=== PATIENT | male | born 1945 | race Caucasian/White ===

== ENCOUNTER → 2017-12-29 14:46 | Outpatient (CLI) | payer MEDICARE, SELFPAY | PROVIDERS: Family Provider Internal Medicine; PCP Internal Medicine; Visit Provider Internal Medicine | DX: E11.621 Type 2 diabetes mellitus with foot ulcer (principal); L97.521 Non-pressure chronic ulcer of other part of left foot limited to breakdown of skin | CPT/HCPCS: 99213 ==

== ENCOUNTER 2018-04-28 13:00 | Outpatient (RCR) | payer MEDICARE, SELFPAY ==
--- NOTE | 2017-12-09 11:53 | PT.OTN ---
Current Diagnoses Acquired absence of right leg below knee (12/09/17) Transition note: On December 08, 2017 our therapy services consisting of Speech, Occupational, and Physical Therapy transitioned from the [employer] electronic documentation system to a new [employer] electronic documentation system.?? All documentation prior to December 08 can be found under [employer] saved data. From December 08 forward all medical record documentation will be in [employer] 6.1.
--- NOTE | 2017-12-09 16:21 | PT.OTN ---
Current Diagnoses Acquired absence of right leg below knee (12/09/17) Physical Therapy Treatment Note PT-OP-A Visit Information Start: 12/09/17 16:03 Freq: Status: Active Protocol: Activity Type Activity Date Activity User E-Sign Co-Sign Detail Recorded Client Recorded Date Recorded By Document 12/09/17 16:06 PINEDA [id number] 12/09/17 16:07 EA 12/09/17 16:06 Out-Patient Physical Therapy Visit Information [Visit Information] -Visit Type Treatment Note -Total Visit Minutes 42 -Visit Number 6 -Number of [employer] Visits 0 PT-OP-C Subjective Start: 12/09/17 16:03 Freq: Status: Active Protocol: Activity Type Activity Date Activity User E-Sign Co-Sign Detail Recorded Client Recorded Date Recorded By Document 12/09/17 16:07 PINEDA [id number] 12/09/17 16:09 EA 12/09/17 16:07 OP-PT Subjective [Patient Comments] -Patient Comments Patient reports he has been walking outside home w/ assistance and walking aide. Patient states no fall and been cautious all the time. Denies any skin irritation to stump site. -Patient Reported Progress Improving PT-OP-Q Treatments Start: 12/09/17 16:03 Freq: Status: Active Protocol: Activity Type Activity Date Activity User E-Sign Co-Sign Detail Recorded Client Recorded Date Recorded By Document 12/09/17 16:09 PINEDA [id number] 12/09/17 16:18 EA 12/09/17 16:09 Therapeutic Exercises [Standing Exercises] 2 -Standing Exercise Name Partial 4 box 1/4 lunges w/ no hand support -Side bilateral -Reps/Minutes 10 x 2 sets 1 -Standing Exercise Name // Bars unilateral 3 way hip F/ABD/ EXT -Side bilateral -Equipment Used // bars -Reps/Minutes 10 reps x 2 Gait Training [Gait Activity] 2 -Description 2 pnt gait -Device Used quad cane -Level of Assistance CGA -Surface level -Distance/Duration 50 ft x 2 -Treatment Focus gait improvement 1 -Device Used rolator walker -Level of Assistance SBA -Surface flat -Distance/Duration 120 ft x 2 -Treatment Focus gait pattern: increasinf WB to ampuated side Neuro Re-Education Treatment [Balance Activities] 3 -Details Foam marching -Reps/Duration 30 x 3 -Comments w/ single hand support 2 -Details Staggered stance ant/post rocking motion with arm FWD -Reps/Duration 30 x 3 1 -Details WBOS/NBOS weight shifting no HS w/ arm challenges -Equipment // bars -Reps/Duration 30 x 3 PT-OP-T Assessment and Plan Start: 12/09/17 16:03 Freq: Status: Active Protocol: Activity Type Activity Date Activity User E-Sign Co-Sign Detail Recorded Client Recorded Date Recorded By Document 12/09/17 16:19 PINEDA [id number] 12/09/17 16:20 PINEDA 12/09/17 16:19 Physical Therapy Assessment [Assessment Summary] -Assessment Tolerated treatment well w/ few rest due to fatigue. Physical Therapy Plan [Next Visit Focus/Plan] -Next Visit Plan Continue w/ current plan. Single leg strengthening exercise and provide HEP.
--- NOTE | 2017-12-16 14:07 | PT.OTN ---
Current Diagnoses Acquired absence of right leg below knee (12/16/17) Physical Therapy Treatment Note PT-OP-A Visit Information Start: 12/09/17 16:03 Freq: Status: Active Protocol: Document 12/16/17 13:57 EA (Rec: 12/16/17 14:06 EA [id number]) Out-Patient Physical Therapy Visit Information Visit Information Visit Type Treatment Note Visit Start Time 01:00 Visit Stop Time 01:45 Total Visit Minutes 45 Visit Number 7 PT-OP-C Subjective Start: 12/09/17 16:03 Freq: Status: Active Protocol: Document 12/16/17 13:57 EA (Rec: 12/16/17 14:06 EA [id number]) OP-PT Subjective Patient Comments Patient Reported Progress Improving PT-OP-Q Treatments Start: 12/09/17 16:03 Freq: Status: Active Protocol: Document 12/16/17 13:57 EA (Rec: 12/16/17 14:06 EA [id number]) Gym Equipment Shuttle Recovery Unilateral Squats Details 0-90 deg Resistance 2 cords Therapeutic Exercises Standing Exercises 3 Standing Exercise Name // bars foam marching Comments one hand support 2 Standing Exercise Name Partial 4 box 1/4 lunges w/ no hand support Side bilateral Reps/Minutes 10 x 2 sets 1 Standing Exercise Name // Bars unilateral 3 way hip F /ABD/EXT Side bilateral Equipment Used // bars Reps/Minutes 10 reps x 2 Gait Training Gait Activity 3 Description stairs 4 Device Used Bilat rails Level of Assistance CGA Distance/Duration 5 mins Comments step through 2 Description 2 pnt gait Device Used quad cane Level of Assistance CGA Surface level Distance/Duration 50 ft x 2 Treatment Focus gait improvement 1 Device Used rolator walker Level of Assistance SBA Surface flat Distance/Duration 150 ft x 2 Treatment Focus gait pattern: increasinf WB to ampuated side Neuro Re-Education Treatment Balance Activities 3 Details Foam marching Reps/Duration 30 x 3 Comments w/ single hand support 2 Details Staggered stance ant/post rocking motion with arm FWD Reps/Duration 30 x 3 1 Details WBOS/NBOS weight shifting no HS w/ arm challenges Equipment // bars Reps/Duration 30 x 3 PT-OP-T Assessment and Plan Start: 12/09/17 16:03 Freq: Status: Active Protocol: Document 12/16/17 13:57 EA (Rec: 05/09/18 14:06 EA [id number]) Physical Therapy Assessment Assessment Summary Assessment Noted improved gait with cane. patient is progresing very well. Physical Therapy Plan Next Visit Focus/Plan Next Visit Plan Cont. with current plan. Practice in/out the car with gm to amb in the parking area.
--- NOTE | 2017-12-21 17:33 | PT.OTN ---
Current Diagnoses Acquired absence of right leg below knee (12/21/17) Physical Therapy Treatment Note PT-OP-A Visit Information Start: 12/09/17 16:03 Freq: Status: Active Protocol: Document 12/21/17 16:49 EA (Rec: 12/21/17 17:32 EA [id number]) Out-Patient Physical Therapy Visit Information Visit Information Visit Start Time 03:15 Visit Stop Time 04:00 Total Visit Minutes 45 Visit Number 8 PT-OP-C Subjective Start: 12/09/17 16:03 Freq: Status: Active Protocol: Document 12/21/17 16:49 EA (Rec: 12/21/17 17:32 EA [id number]) OP-PT Subjective Patient Comments Patient Comments Patient reports that he has been walking at home with walker; denies fall. Pt also reports had to see his docotr today due to bleeding at second toes, however woulnd properly cared at this time. Patient Reported Progress Improving PT-OP-Q Treatments Start: 12/09/17 16:03 Freq: Status: Active Protocol: Document 12/21/17 16:49 EA (Rec: 12/21/17 17:32 EA [id number]) Gym Equipment Shuttle Recovery Unilateral Squats Details 0-90 deg Resistance 2 cords Therapeutic Exercises Standing Exercises 3 Standing Exercise Name // bars foam marching Comments one hand support 2 Standing Exercise Name Partial 4 box 1/4 lunges w/ no hand support Side bilateral Reps/Minutes 10 x 2 sets Gait Training Gait Activity 3 Description stairs 6 Device Used Quad cane and single rail Level of Assistance CGA Distance/Duration 5 mins Comments step through 2 Description 2 pnt gait Device Used quad cane/STC Level of Assistance CGA Surface level Distance/Duration 50 ft x 2 Treatment Focus gait improvement 1 Description Out side amb Device Used rolator walker Level of Assistance SBA Surface flat Distance/Duration 150 ft x 2 Treatment Focus gait pattern: increasinf WB to ampuated side Comments Patient requires rest due dizziness. Neuro Re-Education Treatment Balance Activities 3 Details Foam marching Reps/Duration 30 x 3 Comments w/ single hand support 1 Details WBOS/NBOS weight shifting no HS w/ arm challenges Equipment shuttle balance at blue clips Reps/Duration 30 x 3 PT-OP-T Assessment and Plan Start: 12/09/17 16:03 Freq: Status: Active Protocol: Document 12/21/17 16:49 PINEDA (Rec: 12/21/17 17:32 EA [id number]) Physical Therapy Assessment Goals Four Impairment Gait difficulty Wall Man Goal (LTG) Patient will amb w/ ben to normal gait w/ STC on even surfaces indep. LTG Duration 6 wks Three Impairment Stairs difficulty Short Term Goal (STG) Patient will ascent/descent stair reciprocally indep LTG Duration 5 wks Two Impairment Balance Wall Man Goal (LTG) Patient jg stand on involved leg x 5 secs w/out HS for gait enhancement. LTG Duration 4 wks One Impairment Decreased tolerance to ambulation w/ walker Assisted Goal (LTG) Patient will ab 300 ft with RW indep LTG Duration 6 weeks Progress Towards Goals Progress Towards Goals Slow Progress due to Activity Tolerance Assessment Summary Assessment Patient tolerated treatment well w/ minor standing tolerance issue due to dizziness. a 10-15 mmHG SBP dropped noted. Advised patient to monitor BP closely before and during home ambulation program. Physical Therapy Plan Next Visit Focus/Plan Next Visit Plan Gait w/ Cane
--- NOTE | 2017-12-29 16:14 | PT.OTN ---
Current Diagnoses Acquired absence of right leg below knee (12/29/17) Physical Therapy Treatment Note PT-OP-A Visit Information Start: 12/09/17 16:03 Freq: Status: Active Protocol: Document 12/29/17 16:06 EA (Rec: 12/29/17 16:13 EA [id number]) Out-Patient Physical Therapy Visit Information Visit Information Visit Type Treatment Note Visit Start Time 02:30 Visit Stop Time 03:15 Total Visit Minutes 45 Visit Number 9 PT-OP-C Subjective Start: 12/09/17 16:03 Freq: Status: Active Protocol: Document 12/29/17 16:06 EA (Rec: 12/29/17 16:13 EA [id number]) OP-PT Subjective Patient Comments Patient Comments Patient reports that he has been walking a lot in the past few days; reports no falls but would like to learn how get up from the floor. Patient denies any blister to stump side and opposite foot wound is healed. Patient Reported Progress Improving PT-OP-Q Treatments Start: 12/09/17 16:03 Freq: Status: Active Protocol: Document 12/29/17 16:06 EA (Rec: 12/29/17 16:13 EA [id number]) Gait Training Gait Activity 3 Description stairs 6 Device Used STC and single rail Level of Assistance CGA Distance/Duration 5 mins Comments step through 2 Description 2 pnt gait Device Used STC Level of Assistance CGA Surface level Distance/Duration 50 ft x 2 Treatment Focus gait improvement 1 Description STC ambulation x 100 ft x 3 Neuro Re-Education Treatment Balance Activities 3 Details Foam marching Reps/Duration 30 x 3 Comments w/ single hand support 2 Details Staggered stance ant/post rocking motion with arm FWD Reps/Duration 30 x 3 1 Details WBOS/NBOS weight shifting no HS w/ arm challenges Equipment shuttle balance at blue clips Reps/Duration 30 x 3 PT-OP-T Assessment and Plan Start: 12/09/17 16:03 Freq: Status: Active Protocol: Document 12/29/17 16:06 EA (Rec: 12/29/17 16:13 EA [id number]) Physical Therapy Assessment Progress Towards Goals Progress Towards Goals Progressing Toward Goals Assessment Summary Assessment Patient noted improve energy level and tolerance to activity without a complain of dizziness. Patient also noted improved gait with STC. Overall patient is progressing very well. Physical Therapy Plan Next Visit Focus/Plan Next Visit Plan LE strengthening. Please Sign and Return: I have reviewed this Plan of Care and certify that the skilled therapy services above are required to meet the patient???s needs. Physician Signature Date Printed Name and Credentials Clinical Instructor Signature Printed Name and Credentials
--- NOTE | 2017-12-30 15:36 | PT.OTN ---
Current Diagnoses Acquired absence of right leg below knee (12/30/17) Physical Therapy Treatment Note PT-OP-A Visit Information Start: 12/09/17 16:03 Freq: Status: Active Protocol: Document 12/30/17 15:23 EA (Rec: 12/30/17 15:33 EA [id number]) Out-Patient Physical Therapy Visit Information Visit Information Visit Type Treatment Note Total Visit Minutes 38 Visit Number 10 PT-OP-C Subjective Start: 12/09/17 16:03 Freq: Status: Active Protocol: Document 12/30/17 15:23 EA (Rec: 12/30/17 15:33 EA [id number]) OP-PT Subjective Patient Comments Patient Comments Patient reports that he wants to improve arm and leg strength as he feels leg/arm are still weak; reports that he has been walking at home using walker; denies blister to stump area. Patient Reported Progress Improving PT-OP-Q Treatments Start: 12/09/17 16:03 Freq: Status: Active Protocol: Document 12/30/17 15:23 EA (Rec: 12/30/17 15:33 EA [id number]) Cardio Equipment Recumbent Stepper (Sci-Fit) Duration (Minutes) 7 Resistance 3 Gym Equipment Cable Column (Body Solid) Rows Resistance x 3 plates Reps/Time x 15 reps x 2 Hip Adduction Resistance 3 plates Reps/Time x 15 reps x2 Lat Pull Down Details 3 plates Reps/Time x 15 reps x 2 Hip Abduction Resistance 2-4 plates Reps/Time x 3 sets x 15 Shuttle Recovery Unilateral Squats Details 0-90 deg Resistance 2-3 cords Therapeutic Exercises Standing Exercises 4 Standing Exercise Name railing side step squat Reps/Minutes x 2 laps PT-OP-T Assessment and Plan Start: 12/09/17 16:03 Freq: Status: Active Protocol: Document 12/30/17 15:23 EA (Rec: 12/30/17 15:33 EA [id number]) Physical Therapy Assessment Goals Four Impairment Gait difficulty Residential Goal (LTG) Patient will amb w/ ben to normal gait w/ STC on even surfaces indep. LTG Duration 6 wks Three Impairment Stairs difficulty Short Term Goal (STG) Patient will ascent/descent stair reciprocally indep LTG Duration 5 wks Two Impairment Balance Residential Goal (LTG) Patient jg stand on involved leg x 5 secs w/out HS for gait enhancement. LTG Duration 4 wks One Impairment Decreased tolerance to ambulation w/ walker Residential Goal (LTG) Patient will ab 300 ft with RW indep LTG Duration 6 weeks Progress Towards Goals Progress Towards Goals Progressing Toward Goals Assessment Summary Assessment Patient has progress from CGA to SBA with 4WW and CGA/SBA with cane during gait. No noted any dizziness or general fatigue. Overall patient is progresing well towards goals. Physical Therapy Plan Next Visit Focus/Plan Next Visit Plan Cont. with current plan. Advance as tolerated Please Sign and Return: I have reviewed this Plan of Care and certify that the skilled therapy services above are required to meet the patient???s needs. Physician Signature Date Printed Name and Credentials Clinical Instructor Signature Printed Name and Credentials
--- NOTE | 2018-01-06 16:06 | PT.OTN ---
Current Diagnoses Acquired absence of right leg below knee (01/06/18) Physical Therapy Treatment Note PT-OP-A Visit Information Start: 12/09/17 16:03 Freq: Status: Active Protocol: Document 01/06/18 15:58 EA (Rec: 01/06/18 16:03 EA [id number]) Out-Patient Physical Therapy Visit Information Visit Information Visit Type Treatment Note Total Visit Minutes 38 Visit Number 11 PT-OP-C Subjective Start: 12/09/17 16:03 Freq: Status: Active Protocol: Document 01/06/18 15:58 EA (Rec: 01/06/18 16:03 EA [id number]) OP-PT Subjective Patient Comments Patient Comments Patient reports dizzy spills still noted in the past days; denies fall however still requires help for mobility outdoor. Patient Reported Progress Improving PT-OP-Q Treatments Start: 12/09/17 16:03 Freq: Status: Active Protocol: Document 01/06/18 15:58 EA (Rec: 01/06/18 16:03 EA [id number]) Gym Equipment Shuttle Recovery Unilateral Squats Details 0-90 deg Resistance 2-3 cords Gait Training Gait Activity 3 Description stairs 6 Device Used STC and single rail Level of Assistance CGA Distance/Duration 5 mins Comments step through 2 Description FWD/BWD/SWD Device Used No AD Level of Assistance CGA Surface level Treatment Focus gait improvement Neuro Re-Education Treatment Balance Activities 3 Details Foam marching Reps/Duration 30 x 3 Comments w/ single hand support 2 Details Staggered stance ant/post rocking motion with arm FWD Reps/Duration 30 x 3 1 Details WBOS/NBOS weight shifting no HS w/ arm challenges Equipment shuttle balance at blue clips Reps/Duration 20 x2 Comments Dizziness/nausea after sets noted and forced patient to stop exercises. PT-OP-T Assessment and Plan Start: 12/09/17 16:03 Freq: Status: Active Protocol: Document 01/06/18 16:03 EA (Rec: 01/06/18 16:06 EA [id number]) Physical Therapy Assessment Assessment Summary Assessment Patient was nauseated and vomitted after balance exercises; Vitals were measured ( 130/70mmHg, 78 bpm with normal O2 sat) and normal . Patient felt good after 5 mins of rest. Recommended patient to check with physician regarding dizzy spills. Physical Therapy Plan Next Visit Focus/Plan Next Note Type Progress Note Next Visit Plan Advance as tolerated. Please Sign and Return: I have reviewed this Plan of Care and certify that the skilled therapy services above are required to meet the patient???s needs. Physician Signature Date Printed Name and Credentials Clinical Instructor Signature Printed Name and Credentials
--- NOTE | 2018-01-13 15:53 | PT.OTN ---
Current Diagnoses Acquired absence of right leg below knee (01/13/18) Physical Therapy Treatment Note PT-OP-A Visit Information Start: 12/09/17 16:03 Freq: Status: Active Protocol: Document 01/13/18 15:41 EA (Rec: 01/13/18 15:52 EA [id number]) Out-Patient Physical Therapy Visit Information Visit Information Visit Type Treatment Note Visit Number 12 PT-OP-C Subjective Start: 12/09/17 16:03 Freq: Status: Active Protocol: Document 01/13/18 15:41 EA (Rec: 01/13/18 15:52 EA [id number]) OP-PT Subjective Patient Comments Patient Comments Patient reports feeling much better today and no dizziness occurences after pacemaker adjustment few days ago. Patient reports that he has been active at home and doing ADL almost indep in all. Patient also reports that he has been walking outdoors with assistance; denies fall in the past few weeks. PT-OP-Q Treatments Start: 12/09/17 16:03 Freq: Status: Active Protocol: Document 01/13/18 15:41 EA (Rec: 01/13/18 15:52 EA [id number]) Gait Training Gait Activity 3 Description stairs 6 Device Used STC and single rail Level of Assistance Single rail Distance/Duration 10 mins Comments step through 2 Description FWD/BWD/SWD Device Used No AD Level of Assistance CGA Surface level Distance/Duration 10 mins Treatment Focus gait improvement 1 Description Level surface amb with no hand support Level of Assistance close guard assist Distance/Duration 100 ft x 3 Neuro Re-Education Treatment Balance Activities 3 Details Foam marching Reps/Duration 30 x 3 Comments w/ single hand support 2 Details Staggered stance ant/post rocking motion with arm FWD Reps/Duration 30 x 3 1 Details WBOS/NBOS weight shifting no HS w/ arm challenges Equipment shuttle balance at blue clips Reps/Duration 20 x2 PT-OP-T Assessment and Plan Start: 12/09/17 16:03 Freq: Status: Active Protocol: Document 01/13/18 15:41 EA (Rec: 01/13/18 15:52 EA [id number]) Physical Therapy Assessment Assessment Summary Assessment Patient tolerated treatment well with no signs or c/o dizziness. Patient exhibit improved dynamic mobility. Physical Therapy Plan Next Visit Focus/Plan Next Visit Plan Advance as tolerated Please Sign and Return: I have reviewed this Plan of Care and certify that the skilled therapy services above are required to meet the patient?s needs. Physician Signature Date Printed Name and Credentials Clinical Instructor Signature Printed Name and Credentials
--- NOTE | 2018-01-18 16:54 | PT.OTN ---
Current Diagnoses Acquired absence of right leg below knee (01/18/18) Physical Therapy Treatment Note PT-OP-A Visit Information Start: 12/09/17 16:03 Freq: Status: Active Protocol: Document 01/18/18 16:16 EA (Rec: 01/18/18 16:19 EA [id number]) Out-Patient Physical Therapy Visit Information Visit Information Visit Type Treatment Note Total Visit Minutes 40 Visit Number 13 PT-OP-C Subjective Start: 12/09/17 16:03 Freq: Status: Active Protocol: Document 01/18/18 16:16 EA (Rec: 01/18/18 16:19 EA [id number]) OP-PT Subjective Patient Comments Patient Comments Patient reports he has been active at home and no fall in the past few days. Patient Reported Progress Improving PT-OP-Q Treatments Start: 12/09/17 16:03 Freq: Status: Active Protocol: Document 01/18/18 16:16 EA (Rec: 01/18/18 16:19 EA [id number]) Gym Equipment Cable Column (Body Solid) Hip Adduction Resistance 3 plates Reps/Time x 15 reps x2 Hip Abduction Resistance 2-4 plates Reps/Time x 3 sets x 15 Shuttle Recovery Unilateral Squats Details 0-90 deg Resistance 2-4 cords Shuttle Recovery Platform Stable Therapeutic Exercises Standing Exercises 4 Standing Exercise Name railing side step squat Reps/Minutes x 2 laps Gait Training Gait Activity 3 Description stairs 6 Device Used STC and single rail Level of Assistance Single rail Distance/Duration 10 mins Comments step through 2 Description FWD/BWD/SWD Device Used No AD Level of Assistance CS Surface level Distance/Duration 10 mins Treatment Focus gait improvement Comments x 2 lines of diana obstacle with no AD 1 Description Level surface amb with no hand support Device Used none Level of Assistance close guard assist Distance/Duration 100 ft x 3 Neuro Re-Education Treatment Balance Activities 3 Details Foam marching Reps/Duration 30 x 3 Comments w/ single hand support 2 Details Staggered stance ant/post rocking motion with arm FWD Reps/Duration 30 x 3 1 Details WBOS/NBOS weight shifting no HS w/ arm challenges Equipment shuttle balance at blue clips Reps/Duration 20 x2 PT-OP-T Assessment and Plan Start: 12/09/17 16:03 Freq: Status: Active Protocol: Document 01/18/18 16:49 EA (Rec: 01/18/18 16:51 EA [id number]) Physical Therapy Assessment Assessment Summary Assessment Improved gait/mobility noted with no signs of instability. Still difficulty with diana obstacle. Physical Therapy Plan Next Visit Focus/Plan Next Note Type Treatment Note Next Visit Plan Progress as tolerated. SLS balance. Please Sign and Return: I have reviewed this Plan of Care and certify that the skilled therapy services above are required to meet the patient?s needs. Physician Signature Date Printed Name and Credentials Clinical Instructor Signature Printed Name and Credentials
--- NOTE | 2018-01-20 15:42 | PT.OTN ---
Current Diagnoses Acquired absence of right leg below knee (01/20/18) Physical Therapy Treatment Note PT-OP-A Visit Information Start: 12/09/17 16:03 Freq: Status: Active Protocol: Document 01/20/18 15:18 EA (Rec: 01/20/18 15:41 EA [id number]) Out-Patient Physical Therapy Visit Information Visit Information Visit Type Treatment Note Total Visit Minutes 40 PT-OP-C Subjective Start: 12/09/17 16:03 Freq: Status: Active Protocol: Document 01/20/18 15:18 EA (Rec: 01/20/18 15:41 EA [id number]) OP-PT Subjective Patient Comments Patient Comments Patient reports stump irritation has been fixed after seeing the prothetist. Pt states that he has been walking frequently at home with STC and no fall in the past weeks. He mentioned that since the dizziness cured few weeks ago, he has been feeling much better. Patient Questionnaires Lower Extremity Functional Scale LEFS Score 61 LEFS Impairment 20 to 39% Impaired (Score 48- 62) PT-OP-Q Treatments Start: 12/09/17 16:03 Freq: Status: Active Protocol: Document 01/20/18 15:18 EA (Rec: 01/20/18 15:41 EA [id number]) Gait Training Gait Activity 3 Description stairs 6 Device Used STC and single rail Level of Assistance Single rail Distance/Duration 5 Comments step through 2 Description FWD/BWD/SWD Device Used No AD Level of Assistance CS Surface level Distance/Duration 5 mins Treatment Focus gait improvement Comments cone floor placing and picking up 1 Description outrside ambulation with STC: elvated, grass and curbs. Level of Assistance close guard with belt. Distance/Duration 15 mins Comments outside PT campus: requires rest on the benches Neuro Re-Education Treatment Balance Activities 2 Details Staggered stance ant/post rocking motion with arm FWD Reps/Duration 30 x 3 1 Details WBOS/NBOS weight shifting no HS w/ arm challenges Equipment shuttle balance at blue clips Reps/Duration 20 x2 Comments Arm challenge and balloon toss . PT-OP-T Assessment and Plan Start: 12/09/17 16:03 Freq: Status: Active Protocol: Document 01/20/18 15:18 EA (Rec: 01/20/18 15:41 EA [id number]) Physical Therapy Assessment Assessment Summary Assessment Patient exhibits improved tolerance to functional mobility. TUG test have <10 secs, Stand and reach > 10 on each side. Patient recommended to increase home mobility daily with 2-5 mins increments to reach 25 mins. Physical Therapy Plan Next Visit Focus/Plan Next Visit Plan Cont with current plan. Provide HEP as appropriate. Please Sign and Return: I have reviewed this Plan of Care and certify that the skilled therapy services above are required to meet the patient?s needs. Physician Signature Date Printed Name and Credentials Clinical Instructor Signature Printed Name and Credentials
--- NOTE | 2018-04-01 13:31 | PT.OTRE ---
Current Diagnoses Acquired absence of right leg below knee (03/31/18) Provider Visit Care Team Role Provider Type Rolo Cosme MD Family Provider Physician Primary Care Provider Specialty: Wound Care Address: [address] [place] [address], [id number] Email: [email or web address] Attending Provider Non-Staff Specialty: Medical Address: [address] [place] [address], [id number] Email: Physical Therapy Re-Evaluation PT-OP-A Visit Information Start: 12/09/17 16:03 Freq: Status: Active Protocol: Document 03/31/18 16:54 EA (Rec: 03/31/18 16:57 EA [id number]) Out-Patient Physical Therapy Visit Information Visit Information Visit Type Re-Evaluation Visit Note Re-evaluation performed today. Visit Start Time 13:00 Visit Stop Time 13:45 Total Visit Minutes 45 Visit Number 15 PT-OP-C Subjective Start: 12/09/17 16:03 Freq: Status: Active Protocol: Document 03/31/18 17:20 EA (Rec: 03/31/18 17:22 EA [id number]) OP-PT Subjective Patient Comments Patient Comments Patient reports able to walk at home indep without AD; states requires AD when ambulating outdoors. Patient states he wants to be able to walk 5 blocks without AD and wants to improve his both LE's strength Patient Reported Progress Improving Patient Questionnaires Lower Extremity Functional Scale LEFS Score 47 LEFS Impairment 40 to 59% Impaired (Score 32- 47) PT-OP-D Balance Start: 12/09/17 16:03 Freq: Status: Active Protocol: Document 03/31/18 17:23 EA (Rec: 03/31/18 17:31 EA [id number]) Balance Tests Functional Reach Functional Reach Impairment Rating 0% Impaired (Score 10) Romberg Romberg Moderate difficulty Single Limb Standing Single Limb- Right 2 secs Single Limb- Left 2 secs Semi-Tandem Standing Semi-Tandem Standing Balance with min difficulty Tinetti Balance Assessment Sitting Balance Sitting Balance Steady, safe Sitting Down Sitting Down Uses arms or unsteady Gait and Step Initiation of Gait No hesitancy Right Foot Step Length Does pass stance foot Right Foot Step Height Completely clears floor Left Foot Step Length Does pass stance foot Left Foot Step Height Completely clears floor Step Description Step Symmetry Step length not equal Gait Description Path Description Straight Trunk Description No sway but posturing Walking Stance Heels together Scoring and Interpretation Tinetti Composite Score (points) 11 Interpretation of Scores Low risk for falls (>24) PT-OP-E Functional Tests Start: 12/09/17 16:03 Freq: Status: Active Protocol: Document 03/31/18 17:23 EA (Rec: 03/31/18 17:31 EA [id number]) Functional Tests 2 Minute Walk Test Distance 332 ft Device Used none Comments right lateral hip burn/cramp pain Dynamic Gait Index (DGI) DGI Impairment Rating 40 to <60% Impaired (Score 10- 14) Timed Up and Go (TUG) Score 15 TUG Impairment Rating 40 to <60% Impaired (Score 14- 15) PT-OP-G Mobility & Gait Start: 12/09/17 16:03 Freq: Status: Active Protocol: Document 03/31/18 17:23 EA (Rec: 03/31/18 17:31 EA [id number]) OP Mobility Evaluation Bed Mobility Rolling indep Supine to and from Sit indep Functional Movements Lifting and Carrying requires assistance Squats minimal difficulty Running Assessment unable OP Gait Assessment Gait Gait Assistance Required: Independent Distance (Feet) (feet) 332 Able to Maintain Weight Bearing Status Yes During Gait Assistive Devices Assistive Device Straight Cane Gait Deviations General Gait Pattern Decreased Feet Clearance Lateral Trunk Lean Comments Gait Comments Patient is BKA with prosthetic leg Stair Climbing Evaluation Evaluation Level of Assist On Stairs Independent Devices Stair Climbing Assistive Devices None Technique/Endurance Stair Climbing Direction Ascend and Descend Stair Climbing Technique Step Over Step Number of Steps Climbed 9 Comments Stair Climbing Comments Minimal difficulty during descent; uses both rails PT-OP-Q Treatments Start: 12/09/17 16:03 Freq: Status: Active Protocol: Document 03/31/18 17:31 EA (Rec: 03/31/18 17:36 EA [id number]) Gym Equipment Cable Column (Body Solid) Hip Adduction Resistance 3 plates Reps/Time x 15 reps x2 Hip Abduction Resistance 2-4 plates Reps/Time x 3 sets x 15 Shuttle Recovery Unilateral Squats Details 0-90 deg Resistance 2-4 cords Shuttle Recovery Platform Stable Therapeutic Exercises Standing Exercises 4 Standing Exercise Name railing side step squat Reps/Minutes x 2 laps 3 Standing Exercise Name // bars foam marching Comments one hand support 2 Standing Exercise Name Partial 4 box 1/4 lunges w/ no hand support Side bilateral Reps/Minutes 10 x 2 sets Gait Training Gait Activity 3 Description stairs 6 Device Used single rail up; double rails down Level of Assistance indep Comments step through 1 Description flat ground Device Used none Level of Assistance close guard with belt. Distance/Duration 15 mins Neuro Re-Education Treatment Balance Activities 3 Details Foam marching Reps/Duration 30 x 3 Comments w/ single hand support 2 Details Staggered stance ant/post rocking motion with arm FWD Reps/Duration 30 x 3 1 Details WBOS/NBOS weight shifting no HS w/ arm challenges Equipment shuttle balance at blue clips Reps/Duration 20 x2 Comments Arm challenge and balloon toss . PT-OP-T Assessment and Plan Start: 12/09/17 16:03 Freq: Status: Active Protocol: Document 03/31/18 17:31 EA (Rec: 03/31/18 17:36 EA [id number]) Physical Therapy Assessment Rehab Potential Rehabilitation Potential Good Impairments Impairments Balance Functional Activities Functional Mobility Gait Pain Strength Goals Six Impairment SLS to affectd leg: < 2 seconds Rail Transportation Operator Goal (LTG) Patient will SLS to amputated leg > 5 seconds to enhace Five Impairment decreased amb tolerance without AD Chcf Goal (LTG) Patient will amb > 500 ft without AD without hip pain LTG Duration 6 wks Four Impairment Difficulty amb on even and even surface without AD Rail Transportation Operator Goal (LTG) Patient will amb w/ near to normal gait without AD on even /uneven surfaces indep. LTG Duration 6 wks Three Impairment Stairs difficulty Short Term Goal (STG) Patient will ascent/descent stair reciprocally indep LTG Duration Goal reached Two Impairment Balance Rail Transportation Operator Goal (LTG) Patient jg stand on involved leg x 5 secs w/out HS for gait enhancement. LTG Duration 4 wks One Impairment Decreased tolerance to ambulation w/ walker Rail Transportation Operator Goal (LTG) Patient will ab 300 ft with RW indep LTG Duration goal reached Progress Towards Goals Progress Towards Goals Progressing Toward Goals Progress Comments Patient is progressing more than expected. Assessment Summary Assessment Patient continue to demonstrate progress to functional transfer and mobility. Patient is currently amb with no AD at home but requires AD for outdoors. Right hip pain due to gait deviation limits patient to increase ambulation tolerance. In addition, patient dizziness seems to hinder progress, otherwise patient will cont. to progress. Physical Therapy Plan Frequency and Duration Frequency of Treatment 2x/Week Duration of Treatment 6 wks Plan of Care Start Date 03/31/18 Plan of Care End Date 05/12/18 Therapeutic Interventions Therapeutic Interventions Balance Training Gait Training Home Exercise Program Manual Therapy Neuromuscular Re-education Orthotic/Prosthetic Management Patient/Caregiver Education Self-Care/Home Management Therapeutic Exercises Modalities Cold Pack/Ice Massage Next Visit Focus/Plan Next Note Type Treatment Note Next Visit Plan balance, gait, and strengthening exercises
--- NOTE | 2018-04-01 13:32 | PT.OPPOC ---
Current Diagnoses Acquired absence of right leg below knee (03/31/18) Provider Visit Care Team Role Provider Type Rolo Cosme MD Family Provider Physician Primary Care Provider Specialty: Wound Care Address: [address] [place] [address], [address] Email: [email or web address] Attending Provider Non-Staff Specialty: Medical Address: [address] [place] [address], [phone] Email: Plan Of Care PT-OP-T Assessment and Plan Start: 12/09/17 16:03 Freq: Status: Active Protocol: Document 03/31/18 17:31 EA (Rec: 03/31/18 17:36 EA [id number]) Physical Therapy Assessment Rehab Potential Rehabilitation Potential Good Impairments Impairments Balance Functional Activities Functional Mobility Gait Pain Strength Goals Six Impairment SLS to affectd leg: < 2 seconds Mcfp Goal (LTG) Patient will SLS to amputated leg > 5 seconds to enhace Five Impairment decreased amb tolerance without AD Mcfp Goal (LTG) Patient will amb > 500 ft without AD without hip pain LTG Duration 6 wks Four Impairment Difficulty amb on even and even surface without AD Sprinkler Worker Goal (LTG) Patient will amb w/ near to normal gait without AD on even /uneven surfaces indep. LTG Duration 6 wks Three Impairment Stairs difficulty Short Term Goal (STG) Patient will ascent/descent stair reciprocally indep LTG Duration Goal reached Two Impairment Balance Sprinkler Worker Goal (LTG) Patient jg stand on involved leg x 5 secs w/out HS for gait enhancement. LTG Duration 4 wks One Impairment Decreased tolerance to ambulation w/ walker Mcfp Goal (LTG) Patient will ab 300 ft with RW indep LTG Duration goal reached Progress Towards Goals Progress Towards Goals Progressing Toward Goals Progress Comments Patient is progressing more than expected. Assessment Summary Assessment Patient continue to demonstrate progress to functional transfer and mobility. Patient is currently amb with no AD at home but requires AD for outdoors. Right hip pain due to gait deviation limits patient to increase ambulation tolerance. In addition, patient dizziness seems to hinder progress, otherwise patient will cont. to progress. Physical Therapy Plan Frequency and Duration Frequency of Treatment 2x/Week Duration of Treatment 6 wks Plan of Care Start Date 03/31/18 Plan of Care End Date 05/12/18 Therapeutic Interventions Therapeutic Interventions Balance Training Gait Training Home Exercise Program Manual Therapy Neuromuscular Re-education Orthotic/Prosthetic Management Patient/Caregiver Education Self-Care/Home Management Therapeutic Exercises Modalities Cold Pack/Ice Massage Next Visit Focus/Plan Next Note Type Treatment Note Next Visit Plan balance, gait, and strengthening exercises Plan of Care Dates Plan of Care Start Date 03/31/18 Plan of Care End Date 05/12/18 Please Sign and Return: I have reviewed this Plan of Care and certify that the skilled therapy services above are required to meet the patient?s needs. Physician Signature Date Printed Name and Credentials Clinical Instructor Signature Printed Name and Credentials
--- NOTE | 2018-04-07 15:48 | PT.OTN ---
Current Diagnoses Acquired absence of right leg below knee (04/07/18) Physical Therapy Treatment Note PT-OP-A Visit Information Start: 12/09/17 16:03 Freq: Status: Active Protocol: Document 04/07/18 14:33 EA (Rec: 04/07/18 14:38 EA [id number]) Out-Patient Physical Therapy Visit Information Visit Information Visit Type Treatment Note Visit Start Time 13:00 Visit Stop Time 13:40 Total Visit Minutes 40 Visit Number 16 PT-OP-C Subjective Start: 12/09/17 16:03 Freq: Status: Active Protocol: Document 04/07/18 14:33 EA (Rec: 04/07/18 14:38 EA [id number]) OP-PT Subjective Patient Comments Patient Comments Pt reports he feels much better today after being out of deuritic medication. PT-OP-D Balance Start: 12/09/17 16:03 Freq: Status: Active Protocol: Document 03/31/18 17:23 EA (Rec: 03/31/18 17:31 EA [id number]) Balance Tests Functional Reach Functional Reach Impairment Rating 0% Impaired (Score 10) Romberg Romberg Moderate difficulty Single Limb Standing Single Limb- Right 2 secs Single Limb- Left 2 secs Semi-Tandem Standing Semi-Tandem Standing Balance with min difficulty Tinetti Balance Assessment Sitting Balance Sitting Balance Steady, safe Sitting Down Sitting Down Uses arms or unsteady Gait and Step Initiation of Gait No hesitancy Right Foot Step Length Does pass stance foot Right Foot Step Height Completely clears floor Left Foot Step Length Does pass stance foot Left Foot Step Height Completely clears floor Step Description Step Symmetry Step length not equal Gait Description Path Description Straight Trunk Description No sway but posturing Walking Stance Heels together Scoring and Interpretation Tinetti Composite Score (points) 11 Interpretation of Scores Low risk for falls (>24) PT-OP-E Functional Tests Start: 12/09/17 16:03 Freq: Status: Active Protocol: Document 03/31/18 17:23 EA (Rec: 03/31/18 17:31 EA [id number]) Functional Tests 2 Minute Walk Test Distance 332 ft Device Used none Comments right lateral hip burn/cramp pain Dynamic Gait Index (DGI) DGI Impairment Rating 40 to <60% Impaired (Score 10- 14) Timed Up and Go (TUG) Score 15 TUG Impairment Rating 40 to <60% Impaired (Score 14- 15) PT-OP-G Mobility & Gait Start: 12/09/17 16:03 Freq: Status: Active Protocol: Document 03/31/18 17:23 EA (Rec: 03/31/18 17:31 EA [id number]) OP Mobility Evaluation Bed Mobility Rolling indep Supine to and from Sit indep Functional Movements Lifting and Carrying requires assistance Squats minimal difficulty Running Assessment unable OP Gait Assessment Gait Gait Assistance Required: Independent Distance (Feet) (feet) 332 Able to Maintain Weight Bearing Status Yes During Gait Assistive Devices Assistive Device Straight Cane Gait Deviations General Gait Pattern Decreased Feet Clearance Lateral Trunk Lean Comments Gait Comments Patient is BKA with prosthetic leg Stair Climbing Evaluation Evaluation Level of Assist On Stairs Independent Devices Stair Climbing Assistive Devices None Technique/Endurance Stair Climbing Direction Ascend and Descend Stair Climbing Technique Step Over Step Number of Steps Climbed 9 Comments Stair Climbing Comments Minimal difficulty during descent; uses both rails PT-OP-Q Treatments Start: 12/09/17 16:03 Freq: Status: Active Protocol: Document 04/07/18 14:33 EA (Rec: 04/07/18 14:38 EA [id number]) Cardio Equipment Recumbent Stepper (Sci-Fit) Duration (Minutes) 7 Resistance 3 Gym Equipment Cable Column (Body Solid) Hip Adduction Resistance 3 plates Reps/Time x 15 reps x2 Hip Abduction Resistance 2-4 plates Reps/Time x 3 sets x 15 Shuttle Recovery Unilateral Squats Details 0-90 deg Resistance 2-4 cords Shuttle Recovery Platform Stable Therapeutic Exercises Standing Exercises 4 Standing Exercise Name railing side step squat Reps/Minutes x 2 laps 3 Standing Exercise Name // bars foam marching Comments one hand support 2 Standing Exercise Name Partial 4 box 1/4 lunges w/ no hand support Side bilateral Reps/Minutes 10 x 2 sets Neuro Re-Education Treatment Balance Activities 3 Details Foam marching Reps/Duration 30 x 3 Comments w/ single hand support 2 Details Staggered stance ant/post rocking motion with arm FWD Reps/Duration 30 x 3 1 Details WBOS/NBOS weight shifting no HS w/ arm challenges Equipment shuttle balance at blue clips Reps/Duration 20 x2 Comments Arm challenge and balloon toss . PT-OP-T Assessment and Plan Start: 12/09/17 16:03 Freq: Status: Active Protocol: Document 04/07/18 15:41 EA (Rec: 04/07/18 15:46 EA [id number]) Physical Therapy Assessment Assessment Summary Assessment Patient tolerated treatment well, no dizziness noted. Requires support to obstacle as standing to affected leg showed instability. Cont with current plan. Physical Therapy Plan Next Visit Focus/Plan Next Note Type Treatment Note
--- NOTE | 2018-04-14 15:56 | PT.OTN ---
Current Diagnoses Acquired absence of right leg below knee (04/14/18) Physical Therapy Treatment Note PT-OP-A Visit Information Start: 12/09/17 16:03 Freq: Status: Active Protocol: Document 04/14/18 13:40 EA (Rec: 04/14/18 13:46 EA [id number]) Out-Patient Physical Therapy Visit Information Visit Information Visit Type Treatment Note Visit Start Time 13:00 Visit Stop Time 13:40 Total Visit Minutes 40 Visit Number 17 PT-OP-C Subjective Start: 12/09/17 16:03 Freq: Status: Active Protocol: Document 04/14/18 13:40 EA (Rec: 04/14/18 13:46 EA [id number]) OP-PT Subjective Patient Comments Patient Comments Pt reports did not have enough sleep and unable to perform HEP due to busy sched. Patient denies fall. PT-OP-D Balance Start: 12/09/17 16:03 Freq: Status: Active Protocol: Document 03/31/18 17:23 EA (Rec: 03/31/18 17:31 EA [id number]) Balance Tests Functional Reach Functional Reach Impairment Rating 0% Impaired (Score 10) Romberg Romberg Moderate difficulty Single Limb Standing Single Limb- Right 2 secs Single Limb- Left 2 secs Semi-Tandem Standing Semi-Tandem Standing Balance with min difficulty Tinetti Balance Assessment Sitting Balance Sitting Balance Steady, safe Sitting Down Sitting Down Uses arms or unsteady Gait and Step Initiation of Gait No hesitancy Right Foot Step Length Does pass stance foot Right Foot Step Height Completely clears floor Left Foot Step Length Does pass stance foot Left Foot Step Height Completely clears floor Step Description Step Symmetry Step length not equal Gait Description Path Description Straight Trunk Description No sway but posturing Walking Stance Heels together Scoring and Interpretation Tinetti Composite Score (points) 11 Interpretation of Scores Low risk for falls (>24) PT-OP-E Functional Tests Start: 12/09/17 16:03 Freq: Status: Active Protocol: Document 03/31/18 17:23 EA (Rec: 03/31/18 17:31 EA [id number]) Functional Tests 2 Minute Walk Test Distance 332 ft Device Used none Comments right lateral hip burn/cramp pain Dynamic Gait Index (DGI) DGI Impairment Rating 40 to <60% Impaired (Score 10- 14) Timed Up and Go (TUG) Score 15 TUG Impairment Rating 40 to <60% Impaired (Score 14- 15) PT-OP-G Mobility & Gait Start: 12/09/17 16:03 Freq: Status: Active Protocol: Document 03/31/18 17:23 EA (Rec: 03/31/18 17:31 EA [id number]) OP Mobility Evaluation Bed Mobility Rolling indep Supine to and from Sit indep Functional Movements Lifting and Carrying requires assistance Squats minimal difficulty Running Assessment unable OP Gait Assessment Gait Gait Assistance Required: Independent Distance (Feet) (feet) 332 Able to Maintain Weight Bearing Status Yes During Gait Assistive Devices Assistive Device Straight Cane Gait Deviations General Gait Pattern Decreased Feet Clearance Lateral Trunk Lean Comments Gait Comments Patient is BKA with prosthetic leg Stair Climbing Evaluation Evaluation Level of Assist On Stairs Independent Devices Stair Climbing Assistive Devices None Technique/Endurance Stair Climbing Direction Ascend and Descend Stair Climbing Technique Step Over Step Number of Steps Climbed 9 Comments Stair Climbing Comments Minimal difficulty during descent; uses both rails PT-OP-Q Treatments Start: 12/09/17 16:03 Freq: Status: Active Protocol: Document 04/14/18 13:40 EA (Rec: 04/14/18 13:46 EA [id number]) Cardio Equipment Recumbent Stepper (Sci-Fit) Duration (Minutes) 7 Resistance 3 Gym Equipment Shuttle Recovery Unilateral Squats Details 0-90 deg Resistance 2-4 cords Shuttle Recovery Platform Stable Therapeutic Exercises Standing Exercises 3 Standing Exercise Name // bars foam marching Comments one hand support 2 Standing Exercise Name Partial 4 box 1/4 lunges w/ no hand support Side bilateral Reps/Minutes 10 x 2 sets Neuro Re-Education Treatment Balance Activities 3 Details BUSO Step up/down with single to double hand support in // bars Reps/Duration 30 sec x 5 2 Details Foam staggred stance Reps/Duration 30 x 3 1 Details WBOS/NBOS weight shifting no HS w/ arm challenges Equipment shuttle balance at blue clips Reps/Duration 20 x2 Comments Arm challenge and balloon toss . PT-OP-T Assessment and Plan Start: 12/09/17 16:03 Freq: Status: Active Protocol: Document 04/14/18 13:40 EA (Rec: 04/14/18 13:46 EA [id number]) Physical Therapy Assessment Assessment Summary Assessment Pt tolerated treatment but requires rest due to dizziness . BP appears 110/70 during exercises Physical Therapy Plan Next Visit Focus/Plan Next Visit Plan Advance as tolerated
--- NOTE | 2018-04-19 14:29 | PT.OTN ---
Current Diagnoses Acquired absence of right leg below knee (04/19/18) Physical Therapy Treatment Note PT-OP-A Visit Information Start: 12/09/17 16:03 Freq: Status: Active Protocol: Document 04/19/18 14:22 EA (Rec: 04/19/18 14:29 EA [id number]) Out-Patient Physical Therapy Visit Information Visit Information Visit Type Treatment Note Visit Start Time 13:00 Visit Stop Time 13:40 Total Visit Minutes 40 Visit Number 18 PT-OP-C Subjective Start: 12/09/17 16:03 Freq: Status: Active Protocol: Document 04/19/18 14:22 EA (Rec: 04/19/18 14:29 EA [id number]) OP-PT Subjective Patient Comments Patient Comments Pt reports monet busy in the past few days and HEP was not performed regularly. Denies fall and reports not using walker at home. PT-OP-D Balance Start: 12/09/17 16:03 Freq: Status: Active Protocol: Document 03/31/18 17:23 EA (Rec: 03/31/18 17:31 EA [id number]) Balance Tests Functional Reach Functional Reach Impairment Rating 0% Impaired (Score 10) Romberg Romberg Moderate difficulty Single Limb Standing Single Limb- Right 2 secs Single Limb- Left 2 secs Semi-Tandem Standing Semi-Tandem Standing Balance with min difficulty Tinetti Balance Assessment Sitting Balance Sitting Balance Steady, safe Sitting Down Sitting Down Uses arms or unsteady Gait and Step Initiation of Gait No hesitancy Right Foot Step Length Does pass stance foot Right Foot Step Height Completely clears floor Left Foot Step Length Does pass stance foot Left Foot Step Height Completely clears floor Step Description Step Symmetry Step length not equal Gait Description Path Description Straight Trunk Description No sway but posturing Walking Stance Heels together Scoring and Interpretation Tinetti Composite Score (points) 11 Interpretation of Scores Low risk for falls (>24) PT-OP-E Functional Tests Start: 12/09/17 16:03 Freq: Status: Active Protocol: Document 03/31/18 17:23 EA (Rec: 03/31/18 17:31 EA [id number]) Functional Tests 2 Minute Walk Test Distance 332 ft Device Used none Comments right lateral hip burn/cramp pain Dynamic Gait Index (DGI) DGI Impairment Rating 40 to <60% Impaired (Score 10- 14) Timed Up and Go (TUG) Score 15 TUG Impairment Rating 40 to <60% Impaired (Score 14- 15) PT-OP-G Mobility & Gait Start: 12/09/17 16:03 Freq: Status: Active Protocol: Document 03/31/18 17:23 EA (Rec: 03/31/18 17:31 EA [id number]) OP Mobility Evaluation Bed Mobility Rolling indep Supine to and from Sit indep Functional Movements Lifting and Carrying requires assistance Squats minimal difficulty Running Assessment unable OP Gait Assessment Gait Gait Assistance Required: Independent Distance (Feet) (feet) 332 Able to Maintain Weight Bearing Status Yes During Gait Assistive Devices Assistive Device Straight Cane Gait Deviations General Gait Pattern Decreased Feet Clearance Lateral Trunk Lean Comments Gait Comments Patient is BKA with prosthetic leg Stair Climbing Evaluation Evaluation Level of Assist On Stairs Independent Devices Stair Climbing Assistive Devices None Technique/Endurance Stair Climbing Direction Ascend and Descend Stair Climbing Technique Step Over Step Number of Steps Climbed 9 Comments Stair Climbing Comments Minimal difficulty during descent; uses both rails PT-OP-Q Treatments Start: 12/09/17 16:03 Freq: Status: Active Protocol: Document 04/19/18 14:22 EA (Rec: 04/19/18 14:29 EA [id number]) Cardio Equipment Recumbent Stepper (Sci-Fit) Duration (Minutes) 7 Resistance 4 Gym Equipment Shuttle Recovery Unilateral Squats Details 0-90 deg Resistance 3-5cords Shuttle Recovery Platform Stable Therapeutic Exercises Standing Exercises 2 Standing Exercise Name Partial 4 box 1/4 lunges w/ no hand support Side bilateral Reps/Minutes 10 x 2 sets 1 Standing Exercise Name single leg stance with single hand support Side left Neuro Re-Education Treatment Balance Activities 3 Details BUSO Step up/down with single to double hand support in // bars Reps/Duration 30 sec x 5 2 Details Foam staggred stance Reps/Duration 30 x 3 1 Details WBOS/NBOS weight shifting no HS w/ arm challenges Equipment shuttle balance at blue clips Reps/Duration 20 x2 Comments Arm challenge and balloon toss . PT-OP-T Assessment and Plan Start: 12/09/17 16:03 Freq: Status: Active Protocol: Document 04/19/18 14:22 EA (Rec: 04/19/18 14:29 EA [id number]) Physical Therapy Assessment Assessment Summary Assessment Improved stability noted with decreased frequency of dizziness. Patient is progressing well. Physical Therapy Plan Next Visit Focus/Plan Next Note Type Treatment Note Next Visit Plan advance as tolerated. Walking backward, sideward and turning exercises
--- NOTE | 2018-04-28 14:31 | PT.OTN ---
Current Diagnoses Acquired absence of right leg below knee (04/28/18) Physical Therapy Treatment Note PT-OP-A Visit Information Start: 12/09/17 16:03 Freq: Status: Active Protocol: Document 04/28/18 13:52 EA (Rec: 04/28/18 13:57 EA [id number]) Out-Patient Physical Therapy Visit Information Visit Information Visit Type Treatment Note Visit Start Time 13:00 Visit Stop Time 13:40 Total Visit Minutes 40 Visit Number 19 PT-OP-C Subjective Start: 12/09/17 16:03 Freq: Status: Active Protocol: Document 04/28/18 13:52 EA (Rec: 04/28/18 13:57 EA [id number]) OP-PT Subjective Patient Comments Patient Comments Pt reports consistent with indep amb indoor and outdoor; states dizziness makes him stop doing something. Pt believes from the eye issue. PT-OP-D Balance Start: 12/09/17 16:03 Freq: Status: Active Protocol: Document 03/31/18 17:23 EA (Rec: 03/31/18 17:31 EA [id number]) Balance Tests Functional Reach Functional Reach Impairment Rating 0% Impaired (Score 10) Romberg Romberg Moderate difficulty Single Limb Standing Single Limb- Right 2 secs Single Limb- Left 2 secs Semi-Tandem Standing Semi-Tandem Standing Balance with min difficulty Tinetti Balance Assessment Sitting Balance Sitting Balance Steady, safe Sitting Down Sitting Down Uses arms or unsteady Gait and Step Initiation of Gait No hesitancy Right Foot Step Length Does pass stance foot Right Foot Step Height Completely clears floor Left Foot Step Length Does pass stance foot Left Foot Step Height Completely clears floor Step Description Step Symmetry Step length not equal Gait Description Path Description Straight Trunk Description No sway but posturing Walking Stance Heels together Scoring and Interpretation Tinetti Composite Score (points) 11 Interpretation of Scores Low risk for falls (>24) PT-OP-E Functional Tests Start: 12/09/17 16:03 Freq: Status: Active Protocol: Document 03/31/18 17:23 EA (Rec: 03/31/18 17:31 EA [id number]) Functional Tests 2 Minute Walk Test Distance 332 ft Device Used none Comments right lateral hip burn/cramp pain Dynamic Gait Index (DGI) DGI Impairment Rating 40 to <60% Impaired (Score 10- 14) Timed Up and Go (TUG) Score 15 TUG Impairment Rating 40 to <60% Impaired (Score 14- 15) PT-OP-G Mobility & Gait Start: 12/09/17 16:03 Freq: Status: Active Protocol: Document 03/31/18 17:23 EA (Rec: 03/31/18 17:31 EA [id number]) OP Mobility Evaluation Bed Mobility Rolling indep Supine to and from Sit indep Functional Movements Lifting and Carrying requires assistance Squats minimal difficulty Running Assessment unable OP Gait Assessment Gait Gait Assistance Required: Independent Distance (Feet) 332 Able to Maintain Weight Bearing Status Yes During Gait Assistive Devices Assistive Device Straight Cane Gait Deviations General Gait Pattern Decreased Feet Clearance Lateral Trunk Lean Comments Gait Comments Patient is BKA with prosthetic leg Stair Climbing Evaluation Evaluation Level of Assist On Stairs Independent Devices Stair Climbing Assistive Devices None Technique/Endurance Stair Climbing Direction Ascend and Descend Stair Climbing Technique Step Over Step Number of Steps Climbed 9 Comments Stair Climbing Comments Minimal difficulty during descent; uses both rails PT-OP-Q Treatments Start: 12/09/17 16:03 Freq: Status: Active Protocol: Document 04/28/18 13:52 EA (Rec: 04/28/18 13:57 EA [id number]) Gym Equipment Shuttle Recovery Unilateral Squats Details 0-90 deg Resistance 3-5cords Shuttle Recovery Platform Stable Therapeutic Exercises Standing Exercises 3 Standing Exercise Name // bars foam marching Comments one hand support 1 Standing Exercise Name single leg stance with single hand support Side left Gait Training Gait Activity 3 Description outside walk: elev/grass and stairs Comments 15 mins with STC to right hand Neuro Re-Education Treatment Balance Activities 3 Details BUSO Step up/down with single to double hand support in // bars Reps/Duration 30 sec x 5 2 Details Foam staggred stance Reps/Duration 30 x 3 1 Details WBOS/NBOS weight shifting no HS w/ arm challenges Equipment shuttle balance at blue clips Reps/Duration 20 x2 Comments Arm challenge and balloon toss . PT-OP-T Assessment and Plan Start: 12/09/17 16:03 Freq: Status: Active Protocol: Document 04/28/18 13:52 EA (Rec: 04/28/18 13:57 EA [id number]) Physical Therapy Assessment Assessment Summary Assessment Noted improve out side functional mobility and balance. Patient continue to progress. Physical Therapy Plan Next Visit Focus/Plan Next Note Type Treatment Note Next Visit Plan advance as tolerated. Walking backward, sideward and turning exercises
--- NOTE | 2018-05-12 13:20 | PT.OTN ---
Current Diagnoses Acquired absence of right leg below knee (04/28/18) Physical Therapy Treatment Note PT-OP-A Visit Information Start: 12/09/17 16:03 Freq: Status: Active Protocol: Document 05/12/18 13:18 EA (Rec: 05/12/18 13:20 EA [id number]) Out-Patient Physical Therapy Visit Information Visit Information Visit Type Cancellation Visit Note By phone conversation today, patient reports he has to check with his doctor first about dizzy spills that has been increasing in the past few weeks; states he wants to cancel all the appointment until he feels better or if it advise by the physician. PT-OP-C Subjective Start: 12/09/17 16:03 Freq: Status: Active Protocol: Document 04/28/18 13:52 EA (Rec: 04/28/18 13:57 EA [id number]) OP-PT Subjective Patient Comments Patient Comments Pt reports consistent with indep amb indoor and outdoor; states dizziness makes him stop doing something. Pt believes from the eye issue. PT-OP-D Balance Start: 12/09/17 16:03 Freq: Status: Active Protocol: Document 03/31/18 17:23 EA (Rec: 03/31/18 17:31 EA [id number]) Balance Tests Functional Reach Functional Reach Impairment Rating 0% Impaired (Score 10) Romberg Romberg Moderate difficulty Single Limb Standing Single Limb- Right 2 secs Single Limb- Left 2 secs Semi-Tandem Standing Semi-Tandem Standing Balance with min difficulty Tinetti Balance Assessment Sitting Balance Sitting Balance Steady, safe Sitting Down Sitting Down Uses arms or unsteady Gait and Step Initiation of Gait No hesitancy Right Foot Step Length Does pass stance foot Right Foot Step Height Completely clears floor Left Foot Step Length Does pass stance foot Left Foot Step Height Completely clears floor Step Description Step Symmetry Step length not equal Gait Description Path Description Straight Trunk Description No sway but posturing Walking Stance Heels together Scoring and Interpretation Tinetti Composite Score (points) 11 Interpretation of Scores Low risk for falls (>24) PT-OP-E Functional Tests Start: 12/09/17 16:03 Freq: Status: Active Protocol: Document 03/31/18 17:23 EA (Rec: 03/31/18 17:31 EA [id number]) Functional Tests 2 Minute Walk Test Distance 332 ft Device Used none Comments right lateral hip burn/cramp pain Dynamic Gait Index (DGI) DGI Impairment Rating 40 to <60% Impaired (Score 10- 14) Timed Up and Go (TUG) Score 15 TUG Impairment Rating 40 to <60% Impaired (Score 14- 15) PT-OP-G Mobility & Gait Start: 12/09/17 16:03 Freq: Status: Active Protocol: Document 03/31/18 17:23 EA (Rec: 03/31/18 17:31 EA [id number]) OP Mobility Evaluation Bed Mobility Rolling indep Supine to and from Sit indep Functional Movements Lifting and Carrying requires assistance Squats minimal difficulty Running Assessment unable OP Gait Assessment Gait Gait Assistance Required: Independent Distance (Feet) 332 Able to Maintain Weight Bearing Status Yes During Gait Assistive Devices Assistive Device Straight Cane Gait Deviations General Gait Pattern Decreased Feet Clearance Lateral Trunk Lean Comments Gait Comments Patient is BKA with prosthetic leg Stair Climbing Evaluation Evaluation Level of Assist On Stairs Independent Devices Stair Climbing Assistive Devices None Technique/Endurance Stair Climbing Direction Ascend and Descend Stair Climbing Technique Step Over Step Number of Steps Climbed 9 Comments Stair Climbing Comments Minimal difficulty during descent; uses both rails PT-OP-Q Treatments Start: 12/09/17 16:03 Freq: Status: Active Protocol: Document 04/28/18 13:52 EA (Rec: 04/28/18 13:57 EA [id number]) Gym Equipment Shuttle Recovery Unilateral Squats Details 0-90 deg Resistance 3-5cords Shuttle Recovery Platform Stable Therapeutic Exercises Standing Exercises 3 Standing Exercise Name // bars foam marching Comments one hand support 1 Standing Exercise Name single leg stance with single hand support Side left Gait Training Gait Activity 3 Description outside walk: elev/grass and stairs Comments 15 mins with STC to right hand Neuro Re-Education Treatment Balance Activities 3 Details BUSO Step up/down with single to double hand support in // bars Reps/Duration 30 sec x 5 2 Details Foam staggred stance Reps/Duration 30 x 3 1 Details WBOS/NBOS weight shifting no HS w/ arm challenges Equipment shuttle balance at blue clips Reps/Duration 20 x2 Comments Arm challenge and balloon toss . PT-OP-T Assessment and Plan Start: 12/09/17 16:03 Freq: Status: Active Protocol: Document 04/28/18 13:52 EA (Rec: 09/19/18 13:57 EA [id number]) Physical Therapy Assessment Assessment Summary Assessment Noted improve out side functional mobility and balance. Patient continue to progress. Physical Therapy Plan Next Visit Focus/Plan Next Note Type Treatment Note Next Visit Plan advance as tolerated. Walking backward, sideward and turning exercises
--- NOTE | 2018-05-26 07:18 | PT.OPDS ---
Current Diagnoses Acquired absence of right leg below knee (04/28/18) Provider Visit Care Team Role Provider Type Rolo Cosme MD Family Provider Physician Primary Care Provider Specialty: Wound Care Address: [address] [place] [address], [id number] Email: [email or web address] Reji Jurado MD Attending Provider Non-Staff Specialty: Medical Address: [address] [place] [address], [id number] Email: Visit Number Visit Number 19 Discharge Summary PT-OP-C Subjective Start: 12/09/17 16:03 Freq: Status: Active Protocol: Document 05/26/18 17:34 EA (Rec: 08/04/18 17:38 EA [id number]) OP-PT Subjective Patient Comments Patient Comments By phone on 05/12/18 stated that he would call back after a week to confirm if physician advised with skilled PT continuation. Patient did not call back and all appointments has been cancelled since the last conversation. PT-OP-D Balance Start: 12/09/17 16:03 Freq: Status: Active Protocol: Document 03/31/18 17:23 EA (Rec: 03/31/18 17:31 EA [id number]) Balance Tests Functional Reach Functional Reach Impairment Rating 0% Impaired (Score 10) Romberg Romberg Moderate difficulty Single Limb Standing Single Limb- Right 2 secs Single Limb- Left 2 secs Semi-Tandem Standing Semi-Tandem Standing Balance with min difficulty Tinetti Balance Assessment Sitting Balance Sitting Balance Steady, safe Sitting Down Sitting Down Uses arms or unsteady Gait and Step Initiation of Gait No hesitancy Right Foot Step Length Does pass stance foot Right Foot Step Height Completely clears floor Left Foot Step Length Does pass stance foot Left Foot Step Height Completely clears floor Step Description Step Symmetry Step length not equal Gait Description Path Description Straight Trunk Description No sway but posturing Walking Stance Heels together Scoring and Interpretation Tinetti Composite Score (points) 11 Interpretation of Scores Low risk for falls (>24) PT-OP-E Functional Tests Start: 12/09/17 16:03 Freq: Status: Active Protocol: Document 03/31/18 17:23 EA (Rec: 03/31/18 17:31 EA [id number]) Functional Tests 2 Minute Walk Test Distance 332 ft Device Used none Comments right lateral hip burn/cramp pain Dynamic Gait Index (DGI) DGI Impairment Rating 40 to <60% Impaired (Score 10- 14) Timed Up and Go (TUG) Score 15 TUG Impairment Rating 40 to <60% Impaired (Score 14- 15) PT-OP-G Mobility & Gait Start: 12/09/17 16:03 Freq: Status: Active Protocol: Document 03/31/18 17:23 EA (Rec: 03/31/18 17:31 EA [id number]) OP Mobility Evaluation Bed Mobility Rolling indep Supine to and from Sit indep Functional Movements Lifting and Carrying requires assistance Squats minimal difficulty Running Assessment unable OP Gait Assessment Gait Gait Assistance Required: Independent Distance (Feet) 332 Able to Maintain Weight Bearing Status Yes During Gait Assistive Devices Assistive Device Straight Cane Gait Deviations General Gait Pattern Decreased Feet Clearance Lateral Trunk Lean Comments Gait Comments Patient is BKA with prosthetic leg Stair Climbing Evaluation Evaluation Level of Assist On Stairs Independent Devices Stair Climbing Assistive Devices None Technique/Endurance Stair Climbing Direction Ascend and Descend Stair Climbing Technique Step Over Step Number of Steps Climbed 9 Comments Stair Climbing Comments Minimal difficulty during descent; uses both rails PT-OP-T Assessment and Plan Start: 12/09/17 16:03 Freq: Status: Active Protocol: Document 05/26/18 17:34 EA (Rec: 08/04/18 17:38 EA [id number]) Physical Therapy Assessment Assessment Summary Assessment Patient is discharge due to change of medical status and no appointments set up after last conversation by phone. Physical Therapy Plan Discharge Physical Therapy Discharge Reasons Change in Medical Status
== END 2018-04-28 14:00 ==
LOC: PHYS 13:00
PROVIDERS: Family Provider Internal Medicine; PCP Internal Medicine; Visit Provider Internal Medicine
DX: Z89.511 Acquired absence of right leg below knee (principal)
CPT/HCPCS: 97110; 97112; 97116

== ENCOUNTER 2019-04-06 09:45 | Outpatient (RCR) | payer MEDICARE, SELFPAY ==
--- NOTE | 2019-02-15 17:35 | PT.OIE ---
Current Diagnoses Polyneuropathy, unspecified (02/14/19) Other abnormalities of gait and mobility (02/14/19) Provider Visit Care Team Role Provider Type Reji Jurado MD Attending Provider Non-Staff Primary Care Provider Specialty: [facility] [place], [address] Email: Physical Therapy Initial Evaluation PT-OP-A Visit Information Start: 02/14/19 17:38 Freq: Status: Active Protocol: Document 02/15/19 17:35 EA (Rec: 02/16/19 07:52 EA [id number]) Out-Patient Physical Therapy Visit Information Visit Information Visit Type Initial Evaluation Visit Start Time 09:45 Visit Stop Time 10:30 Total Visit Minutes 45 Visit Number 1 Evaluation Information Evaluation Date 02/16/19 Precautions Precautions Hypotension, Pacemaker PT-OP-B Current Condition Start: 02/14/19 17:38 Freq: Status: Active Protocol: Document 02/15/19 17:35 EA (Rec: 02/16/19 07:52 EA [id number]) Current Condition History of Current Condition Onset Date 02/11/2019 Current Complaints Gait difficulty and left leg neuropathic pain History of Current Condition 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 Had formal PT after amputation and was able to walk with no AD on level surface; states discharge to PT last 2017 due to abnormal vitals and currently stable after medication adjustments. He reports that has been bothered with his balance and pain to leg foot right after having a BF and decreased once in supine position. He denies low back pain or radiating pain from buttock to posterior thigh. He mentioned that his balance is off with stairs and uneven surface without the use of AD. Prior Treatments and Tests Formal PT in 2017/2018 after R BKA. Future Testing and Treatments Planned None identified. Treatment Goals Patient/Caregiver Goals 1. I would like to turn and walk backward without losing my balance 2. I would like to decreased my left toe throbbing pain Prior Functional Status Baseline Function- ADL's Independent Baseline Function- Mobility Independent Baseline Function- Gait Indep with no limitation prior to 2017 BKA Baseline Function- Work/School Retired Baseline Function- Recreation/Hobbies Active lifetsyle with ability to walk more than 5 mile /week and regular resistance training prior to 2017 BKA Current Functional Impairments (Reported) Functional Limitations- ADL's Indep in all except driving and long distance ambulation. Functional Limitations- Mobility/Gait Able to ambulate with no AD on level surface less than a mile. Difficulty with > a mile amb and uneven surface without AD. Difficulty with back santa stepping Functional Limitations- Work/School Retired Functional Limitations- Recreation/ Unable to perform 2017 hobbies Hobbies : long distance walks, regular fitness exercises Personal Factors Other Personal Factors That May Effect Pacemaker, Occasional Therapy/Recovery dizziness, CHF PT-OP-C Subjective Start: 02/14/19 17:38 Freq: Status: Active Protocol: Document 02/15/19 17:35 EA (Rec: 02/16/19 07:52 EA [id number]) Patient Questionnaires Lower Extremity Functional Scale LEFS Score 30 LEFS Impairment 60 to 79% Impaired (Score 17- 31) OP-PT Pain Assessment Pain Assessment Grid Paper Pain Assessment Grid Completed Yes Location Left Dorsal Foot Pain Location Details 2nd and 3rd toes at L4 and L5 dermatome Intensity 6 Scale Used Numeric (1 - 10) Description Throbbing Frequency Intermittent Pain Aggravating Factors ADL's Activity Walking Stair Climbing Pain Alleviating Factors Lying Supine Comments Pain Comments Right foot phantom pain. PT-OP-D Balance Start: 02/14/19 17:38 Freq: Status: Active Protocol: Document 02/16/19 07:16 EA (Rec: 02/16/19 07:52 EA [id number]) OP-PT Balance Assessment Sitting Balance Static Sitting Balance Ability Normal Dynamic Sitting Balance Ability Normal Standing Balance Static Standing Balance Ability Good Dynamic Standing Balance Ability Fair Balance Tests Functional Reach Functional Reach Test 8 Functional Reach Impairment Rating 20 to <40% Impaired (Score 7-8 ) Single Limb Standing Single Limb- Right unable Single Limb- Left Less than 3seconds Tandem Tandem Standing < 5 seconds with Mccann Balance Assessment Evaluation Sitting to Standing Ability Independent w/Hands Unsupported Stance Safely- 2 minutes Standing to Sitting Ability Safely, Minimal Hand Use Transfer Ability Safely, Hand Use Unsupported Stance- Eyes Closed Safely, 10 seconds Unsupported Stance- Eyes Open Independent, 1 minute Reaching Forward Standing Safely, 5 inches Pick- Up Object From Floor Independent/Safe Look Behind Shoulder - Standing Shifts Weight Unilateral Turning 360 Degrees Turns , < 4 secs Unsupported Stance, Alternating Feet on (I)- 8 Steps in > 20 secs Stair Unsupported Tandem Stance Small Step- 30 seconds Unilateral Leg Stance Lifts Leg/Holds > 3 secs Total Score Mccann Total Score (out of 56 points) 42 Mccann Impairment Rating 20 to 39% Impaired (Score 34- 44) Tinetti Balance Assessment Sitting Balance Sitting Balance Steady, safe Arising from Chair Ability to Arise Able, w/o using arms Attempts to Arise Arises on 1st attempt Standing Balance Immediate Standing Balance Steady w/o support Standing Balance Steady, wide stance Nudged Response Steady Standing with Eyes Closed Steady Turning Step Pattern Turning 360 Degrees Continuous steps Stability Turning 360 Degrees Steady Sitting Down Sitting Down Uses arms or unsteady Gait and Step Initiation of Gait No hesitancy Right Foot Step Length Does pass stance foot Right Foot Step Height Completely clears floor Left Foot Step Length Does pass stance foot Left Foot Step Height Completely clears floor Step Description Step Symmetry Step length not equal Gait Description Path Description Straight Trunk Description No sway but posturing Walking Stance Heels apart Scoring and Interpretation Tinetti Composite Score (points) 22 Tinetti Impairment Rating from Composite 20 to <40% Impaired (Score 17- Score 22) Casillas Fall Scale Copyright Permission PT-OP-E Functional Tests Start: 02/14/19 17:38 Freq: Status: Active Protocol: Document 02/15/19 17:35 EA (Rec: 02/16/19 07:52 EA [id number]) Functional Tests Timed Up and Go (TUG) Score 12 TUG Impairment Rating 20 to <40% Impaired (Score 12- 13) PT-OP-F Manual Assessment Start: 02/14/19 17:38 Freq: Status: Active Protocol: Document 02/15/19 17:35 EA (Rec: 02/16/19 07:52 EA [id number]) Manual Assessments Soft Tissue Assessment Soft Tissue Mobility Assessment left 2nd toe extnsor contracture, rest of the toes are flexed tight. Joint Mobility Assessment Joint Mobility Assessment Hypo mobility to left IP/PIP toe joints. PT-OP-G Mobility & Gait Start: 02/14/19 17:38 Freq: Status: Active Protocol: Document 02/15/19 17:35 EA (Rec: 02/16/19 07:52 EA [id number]) OP Mobility Evaluation Bed Mobility Rolling indep Supine to and from Sit indep Transfers Sit to Stand indep Bed to Chair Transfers indep Car Transfers indep Floor Transfers Unable Functional Movements Lifting and Carrying difficulty Squats difficulty Running Assessment Unable OP Gait Assessment Gait Gait Assistance Required: Independent Distance (Feet) 150 Able to Maintain Weight Bearing Status Yes During Gait Assistive Devices Assistive Device None Orthotic/Prosthetic Devices or Brace: Yes Gait Deviations General Gait Pattern Lateral Trunk Lean Factors Limiting Gait Function Factors Limiting Gait Function Decreased Strength Poor Balance PT-OP-H Neuro Start: 02/14/19 17:38 Freq: Status: Active Protocol: Document 02/15/19 17:35 EA (Rec: 02/16/19 07:52 EA [id number]) Sensation Evaluation Gross Sensation Gross Sensation Left LE Impaired Right LE Impaired Sensation Description Numbness Pins & [place] Pain Phantom Pain Dermatome Impairments L3 L4 L5 S1 PT-OP-J Posture/Palpation/Skin Start: 02/14/19 17:38 Freq: Status: Active Protocol: Document 02/15/19 17:35 EA (Rec: 02/16/19 07:52 EA [id number]) Posture Evaluation Position Standing Evaluation View post/ant Comments Posture Comments Fair general posture. No signs of right knee recurvatum. Palpation Assessment Location One Palpation Location left toes. Palpation Findings Tenderness Skin Assessment Other Assessments Skin Assessment Comments No open skin condition or signs or edema on both feet. Slight discoloration that resembels to diabetc foot is noted to left foot, however easy blanching is evident with tests. PT-OP-K Range of Motion Start: 02/14/19 17:38 Freq: Status: Active Protocol: Document 02/15/19 17:35 EA (Rec: 02/16/19 07:52 EA [id number]) Knee Goniometric Range of Motion Knee ROM Limitations Comments WFL on both knees Ankle and Foot Goniometric Range of Motion Ankle and Foot Left Active Ankle/Foot ROM WFL Yes PT-OP-M Strength Start: 02/14/19 17:38 Freq: Status: Active Protocol: Document 02/15/19 17:35 EA (Rec: 02/16/19 07:52 EA [id number]) Hip Strength Hip Manual Muscle Testing Left Reason Not Measured WFL Right Flexion (L2) 4- Good- Abduction 4- Good- Adduction 4- Good- External Rotation 4- Good- Internal Rotation 4- Good- Knee Strength Knee Manual Muscle Testing Right Reason Not Measured WFL Left Reason Not Measured WFL Ankle/Foot Strength Ankle and Foot Manual Muscle Testing Left Dorsiflexion (L4) 4 Good Plantarflexion (S1) 4 Good Inversion 4 Good Eversion (S1) 4 Good Toe Strength Toe Manual Muscle Testing Left Great Toe Flexion 4- Good- Extension 4- Good- PT-OP-Q Treatments Start: 02/14/19 17:38 Freq: Status: Active Protocol: Document 02/15/19 17:35 EA (Rec: 02/16/19 07:52 EA [id number]) Self-Care/Home Management Treatment Education Patient Education Fall Risk Joint Protection Pain Management Posture Safety PT-OP-T Assessment and Plan Start: 02/14/19 17:38 Freq: Status: Active Protocol: Document 02/14/19 17:30 EA (Rec: 02/15/19 12:14 EA [id number]) Physical Therapy Assessment Rehab Potential Rehabilitation Potential Good Evaluation Complexity Number of Personal Factors/Comorbidities 1-2 Number of Body Systems Impaired 3 Clinical Presentation at Evaluation Evolving Impairments Impairments Balance Functional Mobility Gait Pain ROM Soft Tissue Mobility Strength Goals Six Impairment SLS to affectd leg: < 2 seconds Senior Care Goal (LTG) Patient will SLS to amputated leg > 5 seconds to enhance Five Impairment decreased amb tolerance without AD Senior Care Goal (LTG) Patient will amb > 500 ft on uneven surface and will able to turn without instability without using AD LTG Duration 6 wks Four Impairment Difficulty amb on even and even surface without AD Senior Care Goal (LTG) Patient will amb w/ near to normal gait without AD on even /uneven surfaces indep. LTG Duration 6 wks Three Impairment Stairs difficulty Senior Care Goal (LTG) Patient will ascent/descent stair reciprocally indep LTG Duration 4 wks One Impairment LEFS 30/80 Viscose Cellar Charge Hand Goal (LTG) LEFS score of >45/80 to enhance functional living Assessment Summary Assessment PLeasant 73 y/o M patient with a current diagnosis of abnormal gait and peripheral neuropathy. Today patient presented with standing dynamic mobility instability without the use of AD. Assessment reveals left diabetic foot resemblance without open wounds, contracted IP/PIP joint to most of the toes except the amputated one. MMT show no signifcant weakness to both hip and knee major ms group. Left foot major muscle groups shows weakness to toe flexors/ ext, abductors. Sensory assessment to LLE appears diminishing all types of sensory from distal to proximal tibia. Functional balance tests reveals impaired by 40-60% impaired in all standing dynamic movement. Patient appeared motivated during goals setting and willing to participate on recommended HEP and plan and therefore a good candidate for skilled PT. Patient would greatly benefit with skilled PT through foot and amputee education, standing balance training and other general both conditioning to enhance functioanal mobility. Physical Therapy Plan Frequency and Duration Frequency of Treatment 2x/Week Duration of Treatment 8 wks Plan of Care Start Date 02/15/19 Plan of Care End Date 04/12/19 Therapeutic Interventions Therapeutic Interventions Balance Training Gait Training Home Exercise Program Joint Mobilizations Manual Therapy Neuromuscular Re-education Orthotic/Prosthetic Management Patient/Caregiver Education Self-Care/Home Management Soft Tissue Mobilization Therapeutic Exercises Modalities Cold Pack/Ice Massage Next Visit Focus/Plan Next Note Type Treatment Note Next Visit Plan Foot and amputee education, balance training, flexibility to left foot, strengthening. home pain management.
--- NOTE | 2019-02-16 13:04 | PT.OTN ---
Current Diagnoses Polyneuropathy, unspecified (02/16/19) Other abnormalities of gait and mobility (02/16/19) Physical Therapy Treatment Note PT-OP-A Visit Information Start: 02/14/19 17:38 Freq: Status: Active Protocol: Document 02/16/19 12:09 EA (Rec: 02/16/19 12:12 EA [id number]) Out-Patient Physical Therapy Visit Information Visit Information Visit Type Treatment Note Visit Start Time 10:30 Visit Stop Time 11:15 Total Visit Minutes 45 Visit Number 2 PT-OP-B Current Condition Start: 02/14/19 17:38 Freq: Status: Active Protocol: Document 02/15/19 17:35 EA (Rec: 02/16/19 07:52 EA [id number]) Current Condition History of Current Condition Onset Date 02/11/2019 Current Complaints Gait difficulty and left leg neuropathic pain History of Current Condition 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 Had formal PT after amputation and was able to walk with no AD on level surface; states discharge to PT last 2017 due to abnormal vitals and currently stable after medication adjustments. He reports that has been bothered with his balance and pain to leg foot right after having a BF and decreased once in supine position. He denies low back pain or radiating pain from buttok to posterior thigh. He mentioned that his balance is off with stairs and uneven surface without the use of AD. Prior Treatments and Tests Formal PT in 2016/2017 after R BKA. Future Testing and Treatments Planned None identified. Treatment Goals Patient/Caregiver Goals 1. I would like to turn and walk backward without losing my balance 2. I would like to decreased my left toe throbbing pain Prior Functional Status Baseline Function- ADL's Independent Baseline Function- Mobility Independent Baseline Function- Gait Indep with no limitation prior to 2016 BKA Baseline Function- Work/School Retired Baseline Function- Recreation/Hobbies Active lifetsyle with ability to walk more than 5 mile /week and regular resistance training prior to 2016 BKA Current Functional Impairments (Reported) Functional Limitations- ADL's Indep in all except driving and long distance ambulation. Functional Limitations- Mobility/Gait Able to ambulate with no AD on level surface less than a mile. Difficulty with > a mile amb and uneven surface without AD. Difficulty with back santa stepping Functional Limitations- Work/School Retired Functional Limitations- Recreation/ Unable to perform 2017 hobbies Hobbies : long distance walks, regular fitness exercises Personal Factors Other Personal Factors That May Effect Pacemakes, Ocassional Therapy/Recovery dizziness, CHF PT-OP-C Subjective Start: 02/14/19 17:38 Freq: Status: Active Protocol: Document 02/16/19 12:09 EA (Rec: 02/16/19 12:12 EA [id number]) OP-PT Subjective Patient Comments Patient Comments No new complaints. Patient Reported Progress Same PT-OP-D Balance Start: 02/14/19 17:38 Freq: Status: Active Protocol: Document 02/16/19 07:16 EA (Rec: 02/16/19 07:52 EA [id number]) OP-PT Balance Assessment Sitting Balance Static Sitting Balance Ability Normal Dynamic Sitting Balance Ability Normal Standing Balance Static Standing Balance Ability Good Dynamic Standing Balance Ability Fair Balance Tests Functional Reach Functional Reach Test 8 Functional Reach Impairment Rating 20 to <40% Impaired (Score 7-8 ) Single Limb Standing Single Limb- Right unable Single Limb- Left Less than 3seconds Tandem Tandem Standing < 5 seconds with Mccann Balance Assessment Evaluation Sitting to Standing Ability Independent w/Hands Unsupported Stance Safely- 2 minutes Standing to Sitting Ability Safely, Minimal Hand Use Transfer Ability Safely, Hand Use Unsupported Stance- Eyes Closed Safely, 10 seconds Unsupported Stance- Eyes Open Independent, 1 minute Reaching Forward Standing Safely, 5 inches Pick- Up Object From Floor Independent/Safe Look Behind Shoulder - Standing Shifts Weight Unilateral Turning 360 Degrees Turns , < 4 secs Unsupported Stance, Alternating Feet on (I)- 8 Steps in > 20 secs Stair Unsupported Tandem Stance Small Step- 30 seconds Unilateral Leg Stance Lifts Leg/Holds > 3 secs Total Score Mccann Total Score (out of 56 points) 42 Mccann Impairment Rating 20 to 39% Impaired (Score 34- 44) Tinetti Balance Assessment Sitting Balance Sitting Balance Steady, safe Arising from Chair Ability to Arise Able, w/o using arms Attempts to Arise Arises on 1st attempt Standing Balance Immediate Standing Balance Steady w/o support Standing Balance Steady, wide stance Nudged Response Steady Standing with Eyes Closed Steady Turning Step Pattern Turning 360 Degrees Continuous steps Stability Turning 360 Degrees Steady Sitting Down Sitting Down Uses arms or unsteady Gait and Step Initiation of Gait No hesitancy Right Foot Step Length Does pass stance foot Right Foot Step Height Completely clears floor Left Foot Step Length Does pass stance foot Left Foot Step Height Completely clears floor Step Description Step Symmetry Step length not equal Gait Description Path Description Straight Trunk Description No sway but posturing Walking Stance Heels apart Scoring and Interpretation Tinetti Composite Score (points) 22 Tinetti Impairment Rating from Composite 20 to <40% Impaired (Score 17- Score 22) Casillas Fall Scale Copyright Permission PT-OP-E Functional Tests Start: 02/14/19 17:38 Freq: Status: Active Protocol: Document 02/15/19 17:35 EA (Rec: 02/16/19 07:52 EA [id number]) Functional Tests Timed Up and Go (TUG) Score 12 TUG Impairment Rating 20 to <40% Impaired (Score 12- 13) PT-OP-F Manual Assessment Start: 02/14/19 17:38 Freq: Status: Active Protocol: Document 02/15/19 17:35 EA (Rec: 02/16/19 07:52 EA [id number]) Manual Assessments Soft Tissue Assessment Soft Tissue Mobility Assessment left 2nd toe extnsor contracture, rest of the toes are flexed tight. Joint Mobility Assessment Joint Mobility Assessment Hypo mobility to left IP/PIP toe joints. PT-OP-G Mobility & Gait Start: 02/14/19 17:38 Freq: Status: Active Protocol: Document 02/15/19 17:35 EA (Rec: 02/16/19 07:52 EA [id number]) OP Mobility Evaluation Bed Mobility Rolling indep Supine to and from Sit indep Transfers Sit to Stand indep Bed to Chair Transfers indep Car Transfers indep Floor Transfers Unable Functional Movements Lifting and Carrying difficulty Squats difficulty Running Assessment Unable OP Gait Assessment Gait Gait Assistance Required: Independent Distance (Feet) 150 Able to Maintain Weight Bearing Status Yes During Gait Assistive Devices Assistive Device None Orthotic/Prosthetic Devices or Brace: Yes Gait Deviations General Gait Pattern Lateral Trunk Lean Factors Limiting Gait Function Factors Limiting Gait Function Decreased Strength Poor Balance PT-OP-H Neuro Start: 02/14/19 17:38 Freq: Status: Active Protocol: Document 02/15/19 17:35 EA (Rec: 02/16/19 07:52 EA [id number]) Sensation Evaluation Gross Sensation Gross Sensation Left LE Impaired Right LE Impaired Sensation Description Numbness Pins & [place] Pain Phantom Pain Dermatome Impairments L3 L4 L5 S1 PT-OP-J Posture/Palpation/Skin Start: 02/14/19 17:38 Freq: Status: Active Protocol: Document 02/15/19 17:35 EA (Rec: 02/16/19 07:52 EA [id number]) Posture Evaluation Position Standing Evaluation View post/ant Comments Posture Comments Fair general posture. No signs of right knee recurvatum. Palpation Assessment Location One Palpation Location left toes. Palpation Findings Tenderness Skin Assessment Other Assessments Skin Assessment Comments No open skin condition or signs or edema on both feet. Slight discoloration that resembels to diabetc foot is noted to left foot, however easy blanching is evident with tests. PT-OP-K Range of Motion Start: 02/14/19 17:38 Freq: Status: Active Protocol: Document 02/15/19 17:35 EA (Rec: 02/16/19 07:52 EA [id number]) Knee Goniometric Range of Motion Knee ROM Limitations Comments WFL on both knees Ankle and Foot Goniometric Range of Motion Ankle and Foot Left Active Ankle/Foot ROM WFL Yes PT-OP-M Strength Start: 02/14/19 17:38 Freq: Status: Active Protocol: Document 02/15/19 17:35 EA (Rec: 02/16/19 07:52 EA [id number]) Hip Strength Hip Manual Muscle Testing Left Reason Not Measured WFL Right Flexion (L2) 4- Good- Abduction 4- Good- Adduction 4- Good- External Rotation 4- Good- Internal Rotation 4- Good- Knee Strength Knee Manual Muscle Testing Right Reason Not Measured WFL Left Reason Not Measured WFL Ankle/Foot Strength Ankle and Foot Manual Muscle Testing Left Dorsiflexion (L4) 4 Good Plantarflexion (S1) 4 Good Inversion 4 Good Eversion (S1) 4 Good Toe Strength Toe Manual Muscle Testing Left Great Toe Flexion 4- Good- Extension 4- Good- PT-OP-Q Treatments Start: 02/14/19 17:38 Freq: Status: Active Protocol: Document 02/16/19 12:12 EA (Rec: 02/16/19 12:16 EA [id number]) Therapeutic Exercises Standing Exercises 4 Standing Exercise Name Side step squat: 45deg Reps/Minutes x 1 lap of 12 ft with rails support 3 Standing Exercise Name Foam Tandem NBOS/EO/EC/ arm challenge Reps/Minutes x 5 mins 2 Standing Exercise Name Pole support: Multi angle partial lunge Reps/Minutes x 3 reps each angle Manual Therapy Treatment Soft Tissue Mobilization 1 Body Location Peroneals, left foot Mobilization Type Myofascial Release Rolling Intensity/Depth Moderate Body Position Supine Neuro Re-Education Treatment Balance Activities 4 Details BWD/SWD stepping Reps/Duration x 5 mins Comments SBA 3 Details BUSO Step up/down with single to double hand support in // bars Reps/Duration 30 sec x 5 2 Details Foam staggred stance Reps/Duration 30 x 3 1 Details T-pods: steppins Reps/Duration x 5 mins Comments rails PRN with CGA PT-OP-T Assessment and Plan Start: 02/14/19 17:38 Freq: Status: Active Protocol: Document 02/16/19 12:09 [email or web address] (Rec: 02/16/19 12:12 [email or web address] [id number]) Physical Therapy Assessment Assessment Summary Assessment Tolerated treatment well. In addition to recent assessment I noticed that patient left arch is depressed with callus formed at the medial plantar surface. Pt is excited to see the results of manual therapy. Physical Therapy Plan Next Visit Focus/Plan Next Note Type Treatment Note
--- NOTE | 2019-02-24 12:38 | PT.OTN ---
Current Diagnoses Polyneuropathy, unspecified (02/24/19) Other abnormalities of gait and mobility (02/24/19) Physical Therapy Treatment Note PT-OP-A Visit Information Start: 02/14/19 17:38 Freq: Status: Active Protocol: Document 02/24/19 11:13 EA (Rec: 02/24/19 11:15 EA [id number]) Out-Patient Physical Therapy Visit Information Visit Information Visit Type Treatment Note Visit Start Time 09:45 Visit Stop Time 10:30 Total Visit Minutes 45 Visit Number 3 PT-OP-B Current Condition Start: 02/14/19 17:38 Freq: Status: Active Protocol: Document 02/15/19 17:35 EA (Rec: 02/16/19 07:52 EA [id number]) Current Condition History of Current Condition Onset Date 02/11/2019 Current Complaints Gait difficulty and left leg neuropathic pain History of Current Condition 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 Had formal PT after amputation and was able to walk with no AD on level surface; states discharge to PT last 2017 due to abnormal vitals and currently stable after medication adjustments. He reports that has been bothered with his balance and pain to leg foot right after having a BF and decreased once in supine position. He denies low back pain or radiating pain from buttok to posterior thigh. He mentioned that his balance is off with stairs and uneven surface without the use of AD. Prior Treatments and Tests Formal PT in 2016/2017 after R BKA. Future Testing and Treatments Planned None identified. Treatment Goals Patient/Caregiver Goals 1. I would like to turn and walk backward without losing my balance 2. I would like to decreased my left toe throbbing pain Prior Functional Status Baseline Function- ADL's Independent Baseline Function- Mobility Independent Baseline Function- Gait Indep with no limitation prior to 2016 BKA Baseline Function- Work/School Retired Baseline Function- Recreation/Hobbies Active lifetsyle with ability to walk more than 5 mile /week and regular resistance training prior to 2016 BKA Current Functional Impairments (Reported) Functional Limitations- ADL's Indep in all except driving and long distance ambulation. Functional Limitations- Mobility/Gait Able to ambulate with no AD on level surface less than a mile. Difficulty with > a mile amb and uneven surface without AD. Difficulty with back santa stepping Functional Limitations- Work/School Retired Functional Limitations- Recreation/ Unable to perform 2017 hobbies Hobbies : long distance walks, regular fitness exercises Personal Factors Other Personal Factors That May Effect Pacemakes, Ocassional Therapy/Recovery dizziness, CHF PT-OP-C Subjective Start: 02/14/19 17:38 Freq: Status: Active Protocol: Document 02/24/19 11:13 EA (Rec: 02/24/19 11:15 EA [id number]) OP-PT Subjective Patient Comments Patient Comments Pt reports trunk rotation and reaching while standing seem to give him much instability. PT-OP-D Balance Start: 02/14/19 17:38 Freq: Status: Active Protocol: Document 02/16/19 07:16 EA (Rec: 02/16/19 07:52 EA [id number]) OP-PT Balance Assessment Sitting Balance Static Sitting Balance Ability Normal Dynamic Sitting Balance Ability Normal Standing Balance Static Standing Balance Ability Good Dynamic Standing Balance Ability Fair Balance Tests Functional Reach Functional Reach Test 8 Functional Reach Impairment Rating 20 to <40% Impaired (Score 7-8 ) Single Limb Standing Single Limb- Right unable Single Limb- Left Less than 3seconds Tandem Tandem Standing < 5 seconds with Mccann Balance Assessment Evaluation Sitting to Standing Ability Independent w/Hands Unsupported Stance Safely- 2 minutes Standing to Sitting Ability Safely, Minimal Hand Use Transfer Ability Safely, Hand Use Unsupported Stance- Eyes Closed Safely, 10 seconds Unsupported Stance- Eyes Open Independent, 1 minute Reaching Forward Standing Safely, 5 inches Pick- Up Object From Floor Independent/Safe Look Behind Shoulder - Standing Shifts Weight Unilateral Turning 360 Degrees Turns , < 4 secs Unsupported Stance, Alternating Feet on (I)- 8 Steps in > 20 secs Stair Unsupported Tandem Stance Small Step- 30 seconds Unilateral Leg Stance Lifts Leg/Holds > 3 secs Total Score Mccann Total Score (out of 56 points) 42 Mccann Impairment Rating 20 to 39% Impaired (Score 34- 44) Tinetti Balance Assessment Sitting Balance Sitting Balance Steady, safe Arising from Chair Ability to Arise Able, w/o using arms Attempts to Arise Arises on 1st attempt Standing Balance Immediate Standing Balance Steady w/o support Standing Balance Steady, wide stance Nudged Response Steady Standing with Eyes Closed Steady Turning Step Pattern Turning 360 Degrees Continuous steps Stability Turning 360 Degrees Steady Sitting Down Sitting Down Uses arms or unsteady Gait and Step Initiation of Gait No hesitancy Right Foot Step Length Does pass stance foot Right Foot Step Height Completely clears floor Left Foot Step Length Does pass stance foot Left Foot Step Height Completely clears floor Step Description Step Symmetry Step length not equal Gait Description Path Description Straight Trunk Description No sway but posturing Walking Stance Heels apart Scoring and Interpretation Tinetti Composite Score (points) 22 Tinetti Impairment Rating from Composite 20 to <40% Impaired (Score 17- Score 22) Casillas Fall Scale Copyright Permission PT-OP-E Functional Tests Start: 02/14/19 17:38 Freq: Status: Active Protocol: Document 02/15/19 17:35 EA (Rec: 02/16/19 07:52 EA [id number]) Functional Tests Timed Up and Go (TUG) Score 12 TUG Impairment Rating 20 to <40% Impaired (Score 12- 13) PT-OP-F Manual Assessment Start: 02/14/19 17:38 Freq: Status: Active Protocol: Document 02/15/19 17:35 EA (Rec: 02/16/19 07:52 EA [id number]) Manual Assessments Soft Tissue Assessment Soft Tissue Mobility Assessment left 2nd toe extnsor contracture, rest of the toes are flexed tight. Joint Mobility Assessment Joint Mobility Assessment Hypo mobility to left IP/PIP toe joints. PT-OP-G Mobility & Gait Start: 02/14/19 17:38 Freq: Status: Active Protocol: Document 02/15/19 17:35 EA (Rec: 02/16/19 07:52 EA [id number]) OP Mobility Evaluation Bed Mobility Rolling indep Supine to and from Sit indep Transfers Sit to Stand indep Bed to Chair Transfers indep Car Transfers indep Floor Transfers Unable Functional Movements Lifting and Carrying difficulty Squats difficulty Running Assessment Unable OP Gait Assessment Gait Gait Assistance Required: Independent Distance (Feet) 150 Able to Maintain Weight Bearing Status Yes During Gait Assistive Devices Assistive Device None Orthotic/Prosthetic Devices or Brace: Yes Gait Deviations General Gait Pattern Lateral Trunk Lean Factors Limiting Gait Function Factors Limiting Gait Function Decreased Strength Poor Balance PT-OP-H Neuro Start: 02/14/19 17:38 Freq: Status: Active Protocol: Document 02/15/19 17:35 EA (Rec: 02/16/19 07:52 EA [id number]) Sensation Evaluation Gross Sensation Gross Sensation Left LE Impaired Right LE Impaired Sensation Description Numbness Pins & [place] Pain Phantom Pain Dermatome Impairments L3 L4 L5 S1 PT-OP-J Posture/Palpation/Skin Start: 02/14/19 17:38 Freq: Status: Active Protocol: Document 02/15/19 17:35 EA (Rec: 02/16/19 07:52 EA [id number]) Posture Evaluation Position Standing Evaluation View post/ant Comments Posture Comments Fair general posture. No signs of right knee recurvatum. Palpation Assessment Location One Palpation Location left toes. Palpation Findings Tenderness Skin Assessment Other Assessments Skin Assessment Comments No open skin condition or signs or edema on both feet. Slight discoloration that resembels to diabetc foot is noted to left foot, however easy blanching is evident with tests. PT-OP-K Range of Motion Start: 02/14/19 17:38 Freq: Status: Active Protocol: Document 02/15/19 17:35 EA (Rec: 02/16/19 07:52 EA [id number]) Knee Goniometric Range of Motion Knee ROM Limitations Comments WFL on both knees Ankle and Foot Goniometric Range of Motion Ankle and Foot Left Active Ankle/Foot ROM WFL Yes PT-OP-M Strength Start: 02/14/19 17:38 Freq: Status: Active Protocol: Document 02/15/19 17:35 EA (Rec: 02/16/19 07:52 EA [id number]) Hip Strength Hip Manual Muscle Testing Left Reason Not Measured WFL Right Flexion (L2) 4- Good- Abduction 4- Good- Adduction 4- Good- External Rotation 4- Good- Internal Rotation 4- Good- Knee Strength Knee Manual Muscle Testing Right Reason Not Measured WFL Left Reason Not Measured WFL Ankle/Foot Strength Ankle and Foot Manual Muscle Testing Left Dorsiflexion (L4) 4 Good Plantarflexion (S1) 4 Good Inversion 4 Good Eversion (S1) 4 Good Toe Strength Toe Manual Muscle Testing Left Great Toe Flexion 4- Good- Extension 4- Good- PT-OP-Q Treatments Start: 02/14/19 17:38 Freq: Status: Active Protocol: Document 02/24/19 11:13 EA (Rec: 02/24/19 11:15 EA [id number]) Gym Equipment Shuttle Recovery Unilateral Squats Details 0-90 deg Resistance 3cords Shuttle Recovery Platform Stable Reps/Time x 3 sets x 15 reps Therapeutic Exercises Standing Exercises 4 Standing Exercise Name Side step squat: 45deg Reps/Minutes x 1 lap of 12 ft with rails support 3 Standing Exercise Name Foam Tandem NBOS/EO/EC/ arm challenge Reps/Minutes x 5 mins 2 Standing Exercise Name Pole support: Multi angle partial lunge Reps/Minutes x 3 reps each angle 1 Standing Exercise Name Cone zig-zag backward stepping Reps/Minutes x 5 mins Manual Therapy Treatment Soft Tissue Mobilization 1 Body Location Peroneals, left foot Mobilization Type Myofascial Release Rolling Intensity/Depth Moderate Body Position Supine Neuro Re-Education Treatment Balance Activities 3 Details BUSO Step up/down with single to double hand support in // bars Reps/Duration 30 sec x 5 2 Details Foam staggred stance Reps/Duration 30 x 3 Comments reaching backward reaching: left and right alternate feet 1 Details T-pods: steppins Reps/Duration x 5 mins Comments rails PRN with CGA PT-OP-T Assessment and Plan Start: 02/14/19 17:38 Freq: Status: Active Protocol: Document 02/24/19 12:00 PINEDA (Rec: 02/24/19 12:01 PINEDA [id number]) Physical Therapy Assessment Assessment Summary Assessment Tolerated treatment well. Requires CGA during tandem stance. Physical Therapy Plan Next Visit Focus/Plan Next Note Type Treatment Note
--- NOTE | 2019-02-28 12:12 | PT-OP ANOTE ---
At 1210 today patient spoke by phone and stated scheduling errors and that is why he did not show up.
--- NOTE | 2019-03-02 11:12 | PT.OTN ---
Current Diagnoses Polyneuropathy, unspecified (03/02/19) Other abnormalities of gait and mobility (03/02/19) Physical Therapy Treatment Note PT-OP-A Visit Information Start: 02/14/19 17:38 Freq: Status: Active Protocol: Document 03/02/19 10:29 EA (Rec: 03/02/19 10:32 EA [id number]) Out-Patient Physical Therapy Visit Information Visit Information Visit Type Treatment Note Visit Start Time 09:45 Visit Stop Time 10:30 Total Visit Minutes 45 Visit Number 4 PT-OP-B Current Condition Start: 02/14/19 17:38 Freq: Status: Active Protocol: Document 02/15/19 17:35 EA (Rec: 02/16/19 07:52 EA [id number]) Current Condition History of Current Condition Onset Date 02/11/2019 Current Complaints Gait difficulty and left leg neuropathic pain History of Current Condition 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 Had formal PT after amputation and was able to walk with no AD on level surface; states discharge to PT last 2017 due to abnormal vitals and currently stable after medication adjustments. He reports that has been bothered with his balance and pain to leg foot right after having a BF and decreased once in supine position. He denies low back pain or radiating pain from buttok to posterior thigh. He mentioned that his balance is off with stairs and uneven surface without the use of AD. Prior Treatments and Tests Formal PT in 2016/2017 after R BKA. Future Testing and Treatments Planned None identified. Treatment Goals Patient/Caregiver Goals 1. I would like to turn and walk backward without losing my balance 2. I would like to decreased my left toe throbbing pain Prior Functional Status Baseline Function- ADL's Independent Baseline Function- Mobility Independent Baseline Function- Gait Indep with no limitation prior to 2016 BKA Baseline Function- Work/School Retired Baseline Function- Recreation/Hobbies Active lifetsyle with ability to walk more than 5 mile /week and regular resistance training prior to 2016 BKA Current Functional Impairments (Reported) Functional Limitations- ADL's Indep in all except driving and long distance ambulation. Functional Limitations- Mobility/Gait Able to ambulate with no AD on level surface less than a mile. Difficulty with > a mile amb and uneven surface without AD. Difficulty with back santa stepping Functional Limitations- Work/School Retired Functional Limitations- Recreation/ Unable to perform 2017 hobbies Hobbies : long distance walks, regular fitness exercises Personal Factors Other Personal Factors That May Effect Pacemakes, Ocassional Therapy/Recovery dizziness, CHF PT-OP-C Subjective Start: 02/14/19 17:38 Freq: Status: Active Protocol: Document 03/02/19 10:29 EA (Rec: 03/02/19 10:32 EA [id number]) OP-PT Subjective Patient Comments Patient Comments Pt reports have not had BF yet but feels ok. PT-OP-D Balance Start: 02/14/19 17:38 Freq: Status: Active Protocol: Document 02/16/19 07:16 EA (Rec: 02/16/19 07:52 EA [id number]) OP-PT Balance Assessment Sitting Balance Static Sitting Balance Ability Normal Dynamic Sitting Balance Ability Normal Standing Balance Static Standing Balance Ability Good Dynamic Standing Balance Ability Fair Balance Tests Functional Reach Functional Reach Test 8 Functional Reach Impairment Rating 20 to <40% Impaired (Score 7-8 ) Single Limb Standing Single Limb- Right unable Single Limb- Left Less than 3seconds Tandem Tandem Standing < 5 seconds with Mccann Balance Assessment Evaluation Sitting to Standing Ability Independent w/Hands Unsupported Stance Safely- 2 minutes Standing to Sitting Ability Safely, Minimal Hand Use Transfer Ability Safely, Hand Use Unsupported Stance- Eyes Closed Safely, 10 seconds Unsupported Stance- Eyes Open Independent, 1 minute Reaching Forward Standing Safely, 5 inches Pick- Up Object From Floor Independent/Safe Look Behind Shoulder - Standing Shifts Weight Unilateral Turning 360 Degrees Turns , < 4 secs Unsupported Stance, Alternating Feet on (I)- 8 Steps in > 20 secs Stair Unsupported Tandem Stance Small Step- 30 seconds Unilateral Leg Stance Lifts Leg/Holds > 3 secs Total Score Mccann Total Score (out of 56 points) 42 Mccann Impairment Rating 20 to 39% Impaired (Score 34- 44) Tinetti Balance Assessment Sitting Balance Sitting Balance Steady, safe Arising from Chair Ability to Arise Able, w/o using arms Attempts to Arise Arises on 1st attempt Standing Balance Immediate Standing Balance Steady w/o support Standing Balance Steady, wide stance Nudged Response Steady Standing with Eyes Closed Steady Turning Step Pattern Turning 360 Degrees Continuous steps Stability Turning 360 Degrees Steady Sitting Down Sitting Down Uses arms or unsteady Gait and Step Initiation of Gait No hesitancy Right Foot Step Length Does pass stance foot Right Foot Step Height Completely clears floor Left Foot Step Length Does pass stance foot Left Foot Step Height Completely clears floor Step Description Step Symmetry Step length not equal Gait Description Path Description Straight Trunk Description No sway but posturing Walking Stance Heels apart Scoring and Interpretation Tinetti Composite Score (points) 22 Tinetti Impairment Rating from Composite 20 to <40% Impaired (Score 17- Score 22) Casillas Fall Scale Copyright Permission PT-OP-E Functional Tests Start: 02/14/19 17:38 Freq: Status: Active Protocol: Document 02/15/19 17:35 EA (Rec: 02/16/19 07:52 EA [id number]) Functional Tests Timed Up and Go (TUG) Score 12 TUG Impairment Rating 20 to <40% Impaired (Score 12- 13) PT-OP-F Manual Assessment Start: 02/14/19 17:38 Freq: Status: Active Protocol: Document 02/15/19 17:35 EA (Rec: 02/16/19 07:52 EA [id number]) Manual Assessments Soft Tissue Assessment Soft Tissue Mobility Assessment left 2nd toe extnsor contracture, rest of the toes are flexed tight. Joint Mobility Assessment Joint Mobility Assessment Hypo mobility to left IP/PIP toe joints. PT-OP-G Mobility & Gait Start: 02/14/19 17:38 Freq: Status: Active Protocol: Document 02/15/19 17:35 EA (Rec: 02/16/19 07:52 EA [id number]) OP Mobility Evaluation Bed Mobility Rolling indep Supine to and from Sit indep Transfers Sit to Stand indep Bed to Chair Transfers indep Car Transfers indep Floor Transfers Unable Functional Movements Lifting and Carrying difficulty Squats difficulty Running Assessment Unable OP Gait Assessment Gait Gait Assistance Required: Independent Distance (Feet) 150 Able to Maintain Weight Bearing Status Yes During Gait Assistive Devices Assistive Device None Orthotic/Prosthetic Devices or Brace: Yes Gait Deviations General Gait Pattern Lateral Trunk Lean Factors Limiting Gait Function Factors Limiting Gait Function Decreased Strength Poor Balance PT-OP-H Neuro Start: 02/14/19 17:38 Freq: Status: Active Protocol: Document 02/15/19 17:35 EA (Rec: 02/16/19 07:52 EA [id number]) Sensation Evaluation Gross Sensation Gross Sensation Left LE Impaired Right LE Impaired Sensation Description Numbness Pins & [place] Pain Phantom Pain Dermatome Impairments L3 L4 L5 S1 PT-OP-J Posture/Palpation/Skin Start: 02/14/19 17:38 Freq: Status: Active Protocol: Document 02/15/19 17:35 EA (Rec: 02/16/19 07:52 EA [id number]) Posture Evaluation Position Standing Evaluation View post/ant Comments Posture Comments Fair general posture. No signs of right knee recurvatum. Palpation Assessment Location One Palpation Location left toes. Palpation Findings Tenderness Skin Assessment Other Assessments Skin Assessment Comments No open skin condition or signs or edema on both feet. Slight discoloration that resembels to diabetc foot is noted to left foot, however easy blanching is evident with tests. PT-OP-K Range of Motion Start: 02/14/19 17:38 Freq: Status: Active Protocol: Document 02/15/19 17:35 EA (Rec: 02/16/19 07:52 EA [id number]) Knee Goniometric Range of Motion Knee ROM Limitations Comments WFL on both knees Ankle and Foot Goniometric Range of Motion Ankle and Foot Left Active Ankle/Foot ROM WFL Yes PT-OP-M Strength Start: 02/14/19 17:38 Freq: Status: Active Protocol: Document 02/15/19 17:35 EA (Rec: 02/16/19 07:52 EA [id number]) Hip Strength Hip Manual Muscle Testing Left Reason Not Measured WFL Right Flexion (L2) 4- Good- Abduction 4- Good- Adduction 4- Good- External Rotation 4- Good- Internal Rotation 4- Good- Knee Strength Knee Manual Muscle Testing Right Reason Not Measured WFL Left Reason Not Measured WFL Ankle/Foot Strength Ankle and Foot Manual Muscle Testing Left Dorsiflexion (L4) 4 Good Plantarflexion (S1) 4 Good Inversion 4 Good Eversion (S1) 4 Good Toe Strength Toe Manual Muscle Testing Left Great Toe Flexion 4- Good- Extension 4- Good- PT-OP-Q Treatments Start: 02/14/19 17:38 Freq: Status: Active Protocol: Document 03/02/19 10:29 EA (Rec: 03/02/19 10:32 EA [id number]) Cardio Equipment Recumbent Stepper (Sci-Fit) Duration (Minutes) 7 Resistance 4 Gym Equipment Shuttle Recovery Unilateral Squats Details 0-90 deg Resistance 3cords Shuttle Recovery Platform Stable Reps/Time x 3 sets x 15 reps Manual Therapy Treatment Soft Tissue Mobilization 1 Body Location Peroneals, left foot Mobilization Type Myofascial Release Rolling Intensity/Depth Moderate Body Position Supine Neuro Re-Education Treatment Balance Activities 4 Details BWD/SWD stepping Reps/Duration x 5 mins Comments SBA 3 Details BUSO Step up/down with single to double hand support in // bars Reps/Duration 30 sec x 5 2 Details Foam stagarred stance Reps/Duration 30 x 3 Comments reaching backward reaching: left and right alternate feet 1 Details T-pods: stepping Reps/Duration x 5 mins Comments rails PRN with CGA PT-OP-T Assessment and Plan Start: 02/14/19 17:38 Freq: Status: Active Protocol: Document 03/02/19 10:29 EA (Rec: 03/02/19 10:32 EA [id number]) Physical Therapy Assessment Assessment Summary Assessment Tolerated treatment well but requires rest due to fatigue. Recommends to have meal prior to PT. Overall patient is benefiting from dynamic backward movement. Physical Therapy Plan Next Visit Focus/Plan Next Note Type Treatment Note Next Visit Plan Cont dynamic stability in backward motion.
--- NOTE | 2019-03-09 13:52 | PT.OTN ---
Current Diagnoses Polyneuropathy, unspecified (03/09/19) Other abnormalities of gait and mobility (03/09/19) Physical Therapy Treatment Note PT-OP-A Visit Information Start: 02/14/19 17:38 Freq: Status: Active Protocol: Document 03/09/19 13:44 EA (Rec: 03/09/19 13:50 EA [id number]) Out-Patient Physical Therapy Visit Information Visit Information Visit Type Treatment Note Visit Start Time 13:00 Visit Stop Time 13:40 Total Visit Minutes 40 Visit Number 5 PT-OP-B Current Condition Start: 02/14/19 17:38 Freq: Status: Active Protocol: Document 02/15/19 17:35 EA (Rec: 02/16/19 07:52 EA [id number]) Current Condition History of Current Condition Onset Date 02/11/2019 Current Complaints Gait difficulty and left leg neuropathic pain History of Current Condition 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 Had formal PT after amputation and was able to walk with no AD on level surface; states discharge to PT last 2017 due to abnormal vitals and currently stable after medication adjustments. He reports that has been bothered with his balance and pain to leg foot right after having a BF and decreased once in supine position. He denies low back pain or radiating pain from buttok to posterior thigh. He mentioned that his balance is off with stairs and uneven surface without the use of AD. Prior Treatments and Tests Formal PT in 2016/2017 after R BKA. Future Testing and Treatments Planned None identified. Treatment Goals Patient/Caregiver Goals 1. I would like to turn and walk backward without losing my balance 2. I would like to decreased my left toe throbbing pain Prior Functional Status Baseline Function- ADL's Independent Baseline Function- Mobility Independent Baseline Function- Gait Indep with no limitation prior to 2016 BKA Baseline Function- Work/School Retired Baseline Function- Recreation/Hobbies Active lifetsyle with ability to walk more than 5 mile /week and regular resistance training prior to 2016 BKA Current Functional Impairments (Reported) Functional Limitations- ADL's Indep in all except driving and long distance ambulation. Functional Limitations- Mobility/Gait Able to ambulate with no AD on level surface less than a mile. Difficulty with > a mile amb and uneven surface without AD. Difficulty with back santa stepping Functional Limitations- Work/School Retired Functional Limitations- Recreation/ Unable to perform 2017 hobbies Hobbies : long distance walks, regular fitness exercises Personal Factors Other Personal Factors That May Effect Pacemakes, Ocassional Therapy/Recovery dizziness, CHF PT-OP-C Subjective Start: 02/14/19 17:38 Freq: Status: Active Protocol: Document 03/09/19 13:44 EA (Rec: 03/09/19 13:50 EA [id number]) OP-PT Subjective Patient Comments Patient Comments Just by coming here few times I feels my balnce is improving. States he was able to work in the yard for two hours last week. PT-OP-D Balance Start: 02/14/19 17:38 Freq: Status: Active Protocol: Document 02/16/19 07:16 EA (Rec: 02/16/19 07:52 EA [id number]) OP-PT Balance Assessment Sitting Balance Static Sitting Balance Ability Normal Dynamic Sitting Balance Ability Normal Standing Balance Static Standing Balance Ability Good Dynamic Standing Balance Ability Fair Balance Tests Functional Reach Functional Reach Test 8 Functional Reach Impairment Rating 20 to <40% Impaired (Score 7-8 ) Single Limb Standing Single Limb- Right unable Single Limb- Left Less than 3seconds Tandem Tandem Standing < 5 seconds with Mccann Balance Assessment Evaluation Sitting to Standing Ability Independent w/Hands Unsupported Stance Safely- 2 minutes Standing to Sitting Ability Safely, Minimal Hand Use Transfer Ability Safely, Hand Use Unsupported Stance- Eyes Closed Safely, 10 seconds Unsupported Stance- Eyes Open Independent, 1 minute Reaching Forward Standing Safely, 5 inches Pick- Up Object From Floor Independent/Safe Look Behind Shoulder - Standing Shifts Weight Unilateral Turning 360 Degrees Turns , < 4 secs Unsupported Stance, Alternating Feet on (I)- 8 Steps in > 20 secs Stair Unsupported Tandem Stance Small Step- 30 seconds Unilateral Leg Stance Lifts Leg/Holds > 3 secs Total Score Mccann Total Score (out of 56 points) 42 Mccann Impairment Rating 20 to 39% Impaired (Score 34- 44) Tinetti Balance Assessment Sitting Balance Sitting Balance Steady, safe Arising from Chair Ability to Arise Able, w/o using arms Attempts to Arise Arises on 1st attempt Standing Balance Immediate Standing Balance Steady w/o support Standing Balance Steady, wide stance Nudged Response Steady Standing with Eyes Closed Steady Turning Step Pattern Turning 360 Degrees Continuous steps Stability Turning 360 Degrees Steady Sitting Down Sitting Down Uses arms or unsteady Gait and Step Initiation of Gait No hesitancy Right Foot Step Length Does pass stance foot Right Foot Step Height Completely clears floor Left Foot Step Length Does pass stance foot Left Foot Step Height Completely clears floor Step Description Step Symmetry Step length not equal Gait Description Path Description Straight Trunk Description No sway but posturing Walking Stance Heels apart Scoring and Interpretation Tinetti Composite Score (points) 22 Tinetti Impairment Rating from Composite 20 to <40% Impaired (Score 17- Score 22) Casillas Fall Scale Copyright Permission PT-OP-E Functional Tests Start: 02/14/19 17:38 Freq: Status: Active Protocol: Document 02/15/19 17:35 EA (Rec: 02/16/19 07:52 EA [id number]) Functional Tests Timed Up and Go (TUG) Score 12 TUG Impairment Rating 20 to <40% Impaired (Score 12- 13) PT-OP-F Manual Assessment Start: 02/14/19 17:38 Freq: Status: Active Protocol: Document 02/15/19 17:35 EA (Rec: 02/16/19 07:52 EA [id number]) Manual Assessments Soft Tissue Assessment Soft Tissue Mobility Assessment left 2nd toe extnsor contracture, rest of the toes are flexed tight. Joint Mobility Assessment Joint Mobility Assessment Hypo mobility to left IP/PIP toe joints. PT-OP-G Mobility & Gait Start: 02/14/19 17:38 Freq: Status: Active Protocol: Document 02/15/19 17:35 EA (Rec: 02/16/19 07:52 EA [id number]) OP Mobility Evaluation Bed Mobility Rolling indep Supine to and from Sit indep Transfers Sit to Stand indep Bed to Chair Transfers indep Car Transfers indep Floor Transfers Unable Functional Movements Lifting and Carrying difficulty Squats difficulty Running Assessment Unable OP Gait Assessment Gait Gait Assistance Required: Independent Distance (Feet) 150 Able to Maintain Weight Bearing Status Yes During Gait Assistive Devices Assistive Device None Orthotic/Prosthetic Devices or Brace: Yes Gait Deviations General Gait Pattern Lateral Trunk Lean Factors Limiting Gait Function Factors Limiting Gait Function Decreased Strength Poor Balance PT-OP-H Neuro Start: 02/14/19 17:38 Freq: Status: Active Protocol: Document 02/15/19 17:35 EA (Rec: 02/16/19 07:52 EA [id number]) Sensation Evaluation Gross Sensation Gross Sensation Left LE Impaired Right LE Impaired Sensation Description Numbness [place] Pain Phantom Pain Dermatome Impairments L3 L4 L5 S1 PT-OP-J Posture/Palpation/Skin Start: 02/14/19 17:38 Freq: Status: Active Protocol: Document 02/15/19 17:35 EA (Rec: 02/16/19 07:52 EA [id number]) Posture Evaluation Position Standing Evaluation View post/ant Comments Posture Comments Fair general posture. No signs of right knee recurvatum. Palpation Assessment Location One Palpation Location left toes. Palpation Findings Tenderness Skin Assessment Other Assessments Skin Assessment Comments No open skin condition or signs or edema on both feet. Slight discoloration that resembels to diabetc foot is noted to left foot, however easy blanching is evident with tests. PT-OP-K Range of Motion Start: 02/14/19 17:38 Freq: Status: Active Protocol: Document 02/15/19 17:35 EA (Rec: 02/16/19 07:52 EA [id number]) Knee Goniometric Range of Motion Knee ROM Limitations Comments WFL on both knees Ankle and Foot Goniometric Range of Motion Ankle and Foot Left Active Ankle/Foot ROM WFL Yes PT-OP-M Strength Start: 02/14/19 17:38 Freq: Status: Active Protocol: Document 02/15/19 17:35 EA (Rec: 02/16/19 07:52 EA [id number]) Hip Strength Hip Manual Muscle Testing Left Reason Not Measured WFL Right Flexion (L2) 4- Good- Abduction 4- Good- Adduction 4- Good- External Rotation 4- Good- Internal Rotation 4- Good- Knee Strength Knee Manual Muscle Testing Right Reason Not Measured WFL Left Reason Not Measured WFL Ankle/Foot Strength Ankle and Foot Manual Muscle Testing Left Dorsiflexion (L4) 4 Good Plantarflexion (S1) 4 Good Inversion 4 Good Eversion (S1) 4 Good Toe Strength Toe Manual Muscle Testing Left Great Toe Flexion 4- Good- Extension 4- Good- PT-OP-Q Treatments Start: 02/14/19 17:38 Freq: Status: Active Protocol: Document 03/09/19 13:44 EA (Rec: 03/09/19 13:50 EA [id number]) Cardio Equipment Recumbent Stepper (Sci-Fit) Duration (Minutes) 7 Resistance 4 Gym Equipment Shuttle Recovery Unilateral Squats Details 0-90 deg Resistance 4cords Shuttle Recovery Platform Stable Reps/Time x 3 sets x 15 reps Shuttle Balance 1 Details NBOS: ballon toss Comments x8 mins Therapeutic Exercises Standing Exercises 4 Standing Exercise Name Side step squat: 45deg Reps/Minutes x 1 lap of 12 ft with rails support 3 Standing Exercise Name Foam Tandem NBOS/EO/EC/ arm challenge Reps/Minutes x 5 mins 1 Standing Exercise Name Cone zig-zag backward stepping Reps/Minutes x 5 mins Neuro Re-Education Treatment Balance Activities 5 Details Reaching cones behind and fron with trunk twisting. Reps/Duration x 5 mins Comments CGA 4 Details BWD/SWD stepping Reps/Duration x 5 mins Comments SBA 2 Details Foam stagarred stance Reps/Duration 30 x 3 Comments reaching backward reaching: left and right alternate feet PT-OP-T Assessment and Plan Start: 02/14/19 17:38 Freq: Status: Active Protocol: Document 03/09/19 13:44 EA (Rec: 03/09/19 13:50 EA [id number]) Physical Therapy Assessment Assessment Summary Assessment Improved Zig-Zag backward ambulation; however still requires CGA and verbal cues as patient tends step SDW instead of backward. Physical Therapy Plan Next Visit Focus/Plan Next Note Type Treatment Note Next Visit Plan Cont dynamic stability in backward motion.
--- NOTE | 2019-03-16 12:05 | PT.OTN ---
Current Diagnoses Polyneuropathy, unspecified (03/16/19) Other abnormalities of gait and mobility (03/16/19) Physical Therapy Treatment Note PT-OP-A Visit Information Start: 02/14/19 17:38 Freq: Status: Active Protocol: Document 03/16/19 10:28 EA (Rec: 03/16/19 10:31 EA [id number]) Out-Patient Physical Therapy Visit Information Visit Information Visit Type Treatment Note Visit Start Time 09:45 Visit Stop Time 10:30 Total Visit Minutes 45 Visit Number 6 PT-OP-B Current Condition Start: 02/14/19 17:38 Freq: Status: Active Protocol: Document 02/15/19 17:35 EA (Rec: 02/16/19 07:52 EA [id number]) Current Condition History of Current Condition Onset Date 02/11/2019 Current Complaints Gait difficulty and left leg neuropathic pain History of Current Condition 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 Had formal PT after amputation and was able to walk with no AD on level surface; states discharge to PT last 2017 due to abnormal vitals and currently stable after medication adjustments. He reports that has been bothered with his balance and pain to leg foot right after having a BF and decreased once in supine position. He denies low back pain or radiating pain from buttok to posterior thigh. He mentioned that his balance is off with stairs and uneven surface without the use of AD. Prior Treatments and Tests Formal PT in 2016/2017 after R BKA. Future Testing and Treatments Planned None identified. Treatment Goals Patient/Caregiver Goals 1. I would like to turn and walk backward without losing my balance 2. I would like to decreased my left toe throbbing pain Prior Functional Status Baseline Function- ADL's Independent Baseline Function- Mobility Independent Baseline Function- Gait Indep with no limitation prior to 2016 BKA Baseline Function- Work/School Retired Baseline Function- Recreation/Hobbies Active lifetsyle with ability to walk more than 5 mile /week and regular resistance training prior to 2016 BKA Current Functional Impairments (Reported) Functional Limitations- ADL's Indep in all except driving and long distance ambulation. Functional Limitations- Mobility/Gait Able to ambulate with no AD on level surface less than a mile. Difficulty with > a mile amb and uneven surface without AD. Difficulty with back santa stepping Functional Limitations- Work/School Retired Functional Limitations- Recreation/ Unable to perform 2017 hobbies Hobbies : long distance walks, regular fitness exercises Personal Factors Other Personal Factors That May Effect Pacemakes, Ocassional Therapy/Recovery dizziness, CHF PT-OP-C Subjective Start: 02/14/19 17:38 Freq: Status: Active Protocol: Document 03/16/19 10:28 EA (Rec: 03/16/19 10:31 EA [id number]) OP-PT Subjective Patient Comments Patient Comments Pt reports left foot is much feeling better. PT-OP-D Balance Start: 02/14/19 17:38 Freq: Status: Active Protocol: Document 02/16/19 07:16 EA (Rec: 02/16/19 07:52 EA [id number]) OP-PT Balance Assessment Sitting Balance Static Sitting Balance Ability Normal Dynamic Sitting Balance Ability Normal Standing Balance Static Standing Balance Ability Good Dynamic Standing Balance Ability Fair Balance Tests Functional Reach Functional Reach Test 8 Functional Reach Impairment Rating 20 to <40% Impaired (Score 7-8 ) Single Limb Standing Single Limb- Right unable Single Limb- Left Less than 3seconds Tandem Tandem Standing < 5 seconds with Mccann Balance Assessment Evaluation Sitting to Standing Ability Independent w/Hands Unsupported Stance Safely- 2 minutes Standing to Sitting Ability Safely, Minimal Hand Use Transfer Ability Safely, Hand Use Unsupported Stance- Eyes Closed Safely, 10 seconds Unsupported Stance- Eyes Open Independent, 1 minute Reaching Forward Standing Safely, 5 inches Pick- Up Object From Floor Independent/Safe Look Behind Shoulder - Standing Shifts Weight Unilateral Turning 360 Degrees Turns , < 4 secs Unsupported Stance, Alternating Feet on (I)- 8 Steps in > 20 secs Stair Unsupported Tandem Stance Small Step- 30 seconds Unilateral Leg Stance Lifts Leg/Holds > 3 secs Total Score Mccann Total Score (out of 56 points) 42 Mccann Impairment Rating 20 to 39% Impaired (Score 34- 44) Tinetti Balance Assessment Sitting Balance Sitting Balance Steady, safe Arising from Chair Ability to Arise Able, w/o using arms Attempts to Arise Arises on 1st attempt Standing Balance Immediate Standing Balance Steady w/o support Standing Balance Steady, wide stance Nudged Response Steady Standing with Eyes Closed Steady Turning Step Pattern Turning 360 Degrees Continuous steps Stability Turning 360 Degrees Steady Sitting Down Sitting Down Uses arms or unsteady Gait and Step Initiation of Gait No hesitancy Right Foot Step Length Does pass stance foot Right Foot Step Height Completely clears floor Left Foot Step Length Does pass stance foot Left Foot Step Height Completely clears floor Step Description Step Symmetry Step length not equal Gait Description Path Description Straight Trunk Description No sway but posturing Walking Stance Heels apart Scoring and Interpretation Tinetti Composite Score (points) 22 Tinetti Impairment Rating from Composite 20 to <40% Impaired (Score 17- Score 22) Casillas Fall Scale Copyright Permission PT-OP-E Functional Tests Start: 02/14/19 17:38 Freq: Status: Active Protocol: Document 02/15/19 17:35 EA (Rec: 02/16/19 07:52 EA [id number]) Functional Tests Timed Up and Go (TUG) Score 12 TUG Impairment Rating 20 to <40% Impaired (Score 12- 13) PT-OP-F Manual Assessment Start: 02/14/19 17:38 Freq: Status: Active Protocol: Document 02/15/19 17:35 EA (Rec: 02/16/19 07:52 EA [id number]) Manual Assessments Soft Tissue Assessment Soft Tissue Mobility Assessment left 2nd toe extnsor contracture, rest of the toes are flexed tight. Joint Mobility Assessment Joint Mobility Assessment Hypo mobility to left IP/PIP toe joints. PT-OP-G Mobility & Gait Start: 02/14/19 17:38 Freq: Status: Active Protocol: Document 02/15/19 17:35 EA (Rec: 02/16/19 07:52 EA [id number]) OP Mobility Evaluation Bed Mobility Rolling indep Supine to and from Sit indep Transfers Sit to Stand indep Bed to Chair Transfers indep Car Transfers indep Floor Transfers Unable Functional Movements Lifting and Carrying difficulty Squats difficulty Running Assessment Unable OP Gait Assessment Gait Gait Assistance Required: Independent Distance (Feet) 150 Able to Maintain Weight Bearing Status Yes During Gait Assistive Devices Assistive Device None Orthotic/Prosthetic Devices or Brace: Yes Gait Deviations General Gait Pattern Lateral Trunk Lean Factors Limiting Gait Function Factors Limiting Gait Function Decreased Strength Poor Balance PT-OP-H Neuro Start: 02/14/19 17:38 Freq: Status: Active Protocol: Document 02/15/19 17:35 EA (Rec: 02/16/19 07:52 EA [id number]) Sensation Evaluation Gross Sensation Gross Sensation Left LE Impaired Right LE Impaired Sensation Description Numbness [place] Pain Phantom Pain Dermatome Impairments L3 L4 L5 S1 PT-OP-J Posture/Palpation/Skin Start: 02/14/19 17:38 Freq: Status: Active Protocol: Document 02/15/19 17:35 EA (Rec: 02/16/19 07:52 EA [id number]) Posture Evaluation Position Standing Evaluation View post/ant Comments Posture Comments Fair general posture. No signs of right knee recurvatum. Palpation Assessment Location One Palpation Location left toes. Palpation Findings Tenderness Skin Assessment Other Assessments Skin Assessment Comments No open skin condition or signs or edema on both feet. Slight discoloration that resembels to diabetc foot is noted to left foot, however easy blanching is evident with tests. PT-OP-K Range of Motion Start: 02/14/19 17:38 Freq: Status: Active Protocol: Document 02/15/19 17:35 EA (Rec: 02/16/19 07:52 EA [id number]) Knee Goniometric Range of Motion Knee ROM Limitations Comments WFL on both knees Ankle and Foot Goniometric Range of Motion Ankle and Foot Left Active Ankle/Foot ROM WFL Yes PT-OP-M Strength Start: 02/14/19 17:38 Freq: Status: Active Protocol: Document 02/15/19 17:35 EA (Rec: 02/16/19 07:52 EA [id number]) Hip Strength Hip Manual Muscle Testing Left Reason Not Measured WFL Right Flexion (L2) 4- Good- Abduction 4- Good- Adduction 4- Good- External Rotation 4- Good- Internal Rotation 4- Good- Knee Strength Knee Manual Muscle Testing Right Reason Not Measured WFL Left Reason Not Measured WFL Ankle/Foot Strength Ankle and Foot Manual Muscle Testing Left Dorsiflexion (L4) 4 Good Plantarflexion (S1) 4 Good Inversion 4 Good Eversion (S1) 4 Good Toe Strength Toe Manual Muscle Testing Left Great Toe Flexion 4- Good- Extension 4- Good- PT-OP-Q Treatments Start: 02/14/19 17:38 Freq: Status: Active Protocol: Document 03/16/19 10:28 EA (Rec: 03/16/19 10:31 EA [id number]) Gym Equipment Shuttle Recovery Unilateral Squats Details 0-90 deg Resistance 4cords Shuttle Recovery Platform Stable Reps/Time x 3 sets x 15 reps Shuttle Balance 1 Details NBOS: ballon toss Comments x8 mins Therapeutic Exercises Standing Exercises 4 Standing Exercise Name Side step squat: 45deg Reps/Minutes x 1 lap of 12 ft with rails support 1 Standing Exercise Name Cone zig-zag backward stepping Reps/Minutes x 5 mins Neuro Re-Education Treatment Balance Activities 5 Details Reaching cones behind and fron with trunk twisting. Reps/Duration x 5 mins Comments CGA 4 Details BWD/SWD stepping Surface Wide foam matress Reps/Duration x 5 mins Comments SBA 3 Details BUSO Step up/down with single to double hand support in // bars Reps/Duration 30 sec x 5 2 Details Foam stagarred stance Reps/Duration 30 x 3 Comments reaching backward reaching: left and right alternate feet 1 Details T-pods: stepping Reps/Duration x 5 mins Comments rails PRN with CGA PT-OP-T Assessment and Plan Start: 02/14/19 17:38 Freq: Status: Active Protocol: Document 03/16/19 10:28 EA (Rec: 03/16/19 10:31 EA [id number]) Physical Therapy Assessment Assessment Summary Assessment Ocular inspection after exercises session to left foot reveals abnormal discoloration of superficial veins with uneven edges; the was inform to see and recommends to see his vascular surgeon immediately. No noted any signs of acute inflammation. Patient tolerated treatment well today with no signs of discomfort. Physical Therapy Plan Next Visit Focus/Plan Next Note Type Treatment Note Next Visit Plan Re-evaluate left foot.
--- NOTE | 2019-03-21 17:25 | PT.OTN ---
Current Diagnoses Polyneuropathy, unspecified (03/21/19) Other abnormalities of gait and mobility (03/21/19) Physical Therapy Treatment Note PT-OP-A Visit Information Start: 02/14/19 17:38 Freq: Status: Active Protocol: Document 03/21/19 13:41 EA (Rec: 03/21/19 13:47 EA [id number]) Out-Patient Physical Therapy Visit Information Visit Information Visit Type Treatment Note Visit Start Time 13:00 Visit Stop Time 13:45 Total Visit Minutes 45 Visit Number 7 PT-OP-B Current Condition Start: 02/14/19 17:38 Freq: Status: Active Protocol: Document 02/15/19 17:35 EA (Rec: 02/16/19 07:52 EA [id number]) Current Condition History of Current Condition Onset Date 02/11/2019 Current Complaints Gait difficulty and left leg neuropathic pain History of Current Condition 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 Had formal PT after amputation and was able to walk with no AD on level surface; states discharge to PT last 2017 due to abnormal vitals and currently stable after medication adjustments. He reports that has been bothered with his balance and pain to leg foot right after having a BF and decreased once in supine position. He denies low back pain or radiating pain from buttok to posterior thigh. He mentioned that his balance is off with stairs and uneven surface without the use of AD. Prior Treatments and Tests Formal PT in 2016/2017 after R BKA. Future Testing and Treatments Planned None identified. Treatment Goals Patient/Caregiver Goals 1. I would like to turn and walk backward without losing my balance 2. I would like to decreased my left toe throbbing pain Prior Functional Status Baseline Function- ADL's Independent Baseline Function- Mobility Independent Baseline Function- Gait Indep with no limitation prior to 2016 BKA Baseline Function- Work/School Retired Baseline Function- Recreation/Hobbies Active lifetsyle with ability to walk more than 5 mile /week and regular resistance training prior to 2016 BKA Current Functional Impairments (Reported) Functional Limitations- ADL's Indep in all except driving and long distance ambulation. Functional Limitations- Mobility/Gait Able to ambulate with no AD on level surface less than a mile. Difficulty with > a mile amb and uneven surface without AD. Difficulty with back santa stepping Functional Limitations- Work/School Retired Functional Limitations- Recreation/ Unable to perform 2017 hobbies Hobbies : long distance walks, regular fitness exercises Personal Factors Other Personal Factors That May Effect Pacemakes, Ocassional Therapy/Recovery dizziness, CHF PT-OP-C Subjective Start: 02/14/19 17:38 Freq: Status: Active Protocol: Document 03/21/19 13:41 EA (Rec: 03/21/19 13:47 EA [id number]) OP-PT Subjective Patient Comments Patient Comments Pt reports went to doctor for left foot veins discoloration; states everything is okay nothing to worry. PT-OP-D Balance Start: 02/14/19 17:38 Freq: Status: Active Protocol: Document 02/16/19 07:16 EA (Rec: 02/16/19 07:52 EA [id number]) OP-PT Balance Assessment Sitting Balance Static Sitting Balance Ability Normal Dynamic Sitting Balance Ability Normal Standing Balance Static Standing Balance Ability Good Dynamic Standing Balance Ability Fair Balance Tests Functional Reach Functional Reach Test 8 Functional Reach Impairment Rating 20 to <40% Impaired (Score 7-8 ) Single Limb Standing Single Limb- Right unable Single Limb- Left Less than 3seconds Tandem Tandem Standing < 5 seconds with Mccann Balance Assessment Evaluation Sitting to Standing Ability Independent w/Hands Unsupported Stance Safely- 2 minutes Standing to Sitting Ability Safely, Minimal Hand Use Transfer Ability Safely, Hand Use Unsupported Stance- Eyes Closed Safely, 10 seconds Unsupported Stance- Eyes Open Independent, 1 minute Reaching Forward Standing Safely, 5 inches Pick- Up Object From Floor Independent/Safe Look Behind Shoulder - Standing Shifts Weight Unilateral Turning 360 Degrees Turns , < 4 secs Unsupported Stance, Alternating Feet on (I)- 8 Steps in > 20 secs Stair Unsupported Tandem Stance Small Step- 30 seconds Unilateral Leg Stance Lifts Leg/Holds > 3 secs Total Score Mccann Total Score (out of 56 points) 42 Mccann Impairment Rating 20 to 39% Impaired (Score 34- 44) Tinetti Balance Assessment Sitting Balance Sitting Balance Steady, safe Arising from Chair Ability to Arise Able, w/o using arms Attempts to Arise Arises on 1st attempt Standing Balance Immediate Standing Balance Steady w/o support Standing Balance Steady, wide stance Nudged Response Steady Standing with Eyes Closed Steady Turning Step Pattern Turning 360 Degrees Continuous steps Stability Turning 360 Degrees Steady Sitting Down Sitting Down Uses arms or unsteady Gait and Step Initiation of Gait No hesitancy Right Foot Step Length Does pass stance foot Right Foot Step Height Completely clears floor Left Foot Step Length Does pass stance foot Left Foot Step Height Completely clears floor Step Description Step Symmetry Step length not equal Gait Description Path Description Straight Trunk Description No sway but posturing Walking Stance Heels apart Scoring and Interpretation Tinetti Composite Score (points) 22 Tinetti Impairment Rating from Composite 20 to <40% Impaired (Score 17- Score 22) [place] Fall Scale Copyright Permission PT-OP-E Functional Tests Start: 02/14/19 17:38 Freq: Status: Active Protocol: Document 02/15/19 17:35 EA (Rec: 02/16/19 07:52 EA [id number]) Functional Tests Timed Up and Go (TUG) Score 12 TUG Impairment Rating 20 to <40% Impaired (Score 12- 13) PT-OP-F Manual Assessment Start: 02/14/19 17:38 Freq: Status: Active Protocol: Document 02/15/19 17:35 EA (Rec: 02/16/19 07:52 EA [id number]) Manual Assessments Soft Tissue Assessment Soft Tissue Mobility Assessment left 2nd toe extnsor contracture, rest of the toes are flexed tight. Joint Mobility Assessment Joint Mobility Assessment Hypo mobility to left IP/PIP toe joints. PT-OP-G Mobility & Gait Start: 02/14/19 17:38 Freq: Status: Active Protocol: Document 02/15/19 17:35 EA (Rec: 02/16/19 07:52 EA [id number]) OP Mobility Evaluation Bed Mobility Rolling indep Supine to and from Sit indep Transfers Sit to Stand indep Bed to Chair Transfers indep Car Transfers indep Floor Transfers Unable Functional Movements Lifting and Carrying difficulty Squats difficulty Running Assessment Unable OP Gait Assessment Gait Gait Assistance Required: Independent Distance (Feet) 150 Able to Maintain Weight Bearing Status Yes During Gait Assistive Devices Assistive Device None Orthotic/Prosthetic Devices or Brace: Yes Gait Deviations General Gait Pattern Lateral Trunk Lean Factors Limiting Gait Function Factors Limiting Gait Function Decreased Strength Poor Balance PT-OP-H Neuro Start: 02/14/19 17:38 Freq: Status: Active Protocol: Document 02/15/19 17:35 EA (Rec: 02/16/19 07:52 EA [id number]) Sensation Evaluation Gross Sensation Gross Sensation Left LE Impaired Right LE Impaired Sensation Description Numbness Pins & [place] Pain Phantom Pain Dermatome Impairments L3 L4 L5 S1 PT-OP-J Posture/Palpation/Skin Start: 02/14/19 17:38 Freq: Status: Active Protocol: Document 02/15/19 17:35 EA (Rec: 02/16/19 07:52 EA [id number]) Posture Evaluation Position Standing Evaluation View post/ant Comments Posture Comments Fair general posture. No signs of right knee recurvatum. Palpation Assessment Location One Palpation Location left toes. Palpation Findings Tenderness Skin Assessment Other Assessments Skin Assessment Comments No open skin condition or signs or edema on both feet. Slight discoloration that resembels to diabetc foot is noted to left foot, however easy blanching is evident with tests. PT-OP-K Range of Motion Start: 02/14/19 17:38 Freq: Status: Active Protocol: Document 02/15/19 17:35 EA (Rec: 02/16/19 07:52 EA [id number]) Knee Goniometric Range of Motion Knee ROM Limitations Comments WFL on both knees Ankle and Foot Goniometric Range of Motion Ankle and Foot Left Active Ankle/Foot ROM WFL Yes PT-OP-M Strength Start: 02/14/19 17:38 Freq: Status: Active Protocol: Document 02/15/19 17:35 EA (Rec: 02/16/19 07:52 EA [id number]) Hip Strength Hip Manual Muscle Testing Left Reason Not Measured WFL Right Flexion (L2) 4- Good- Abduction 4- Good- Adduction 4- Good- External Rotation 4- Good- Internal Rotation 4- Good- Knee Strength Knee Manual Muscle Testing Right Reason Not Measured WFL Left Reason Not Measured WFL Ankle/Foot Strength Ankle and Foot Manual Muscle Testing Left Dorsiflexion (L4) 4 Good Plantarflexion (S1) 4 Good Inversion 4 Good Eversion (S1) 4 Good Toe Strength Toe Manual Muscle Testing Left Great Toe Flexion 4- Good- Extension 4- Good- PT-OP-Q Treatments Start: 02/14/19 17:38 Freq: Status: Active Protocol: Document 03/21/19 13:41 EA (Rec: 03/21/19 13:47 EA [id number]) Cardio Equipment Recumbent Stepper (Sci-Fit) Duration (Minutes) 7 Resistance 4 Gym Equipment Shuttle Recovery Unilateral Squats Details 0-90 deg Resistance 4cords Shuttle Recovery Platform Stable Reps/Time x 3 sets x 15 reps Shuttle Balance 1 Details NBOS: ballon toss Comments x8 mins Sport Cord 1 Exercise Details fwd/bwd/swd Cord/Resistance red Reps/Duration x 45 laps each Therapeutic Exercises Standing Exercises 3 Standing Exercise Name Foam Tandem NBOS/EO/EC/ arm challenge Reps/Minutes x 5 mins 1 Standing Exercise Name Cone zig-zag backward stepping Reps/Minutes x 5 mins Neuro Re-Education Treatment Balance Activities 5 Details Reaching cones behind and fron with trunk twisting. Reps/Duration x 5 mins Comments CGA 4 Details BWD/SWD stepping Surface Wide foam matress Reps/Duration x 5 mins Comments SBA 3 Details BUSO Step up/down with single to double hand support in // bars Reps/Duration 30 sec x 5 2 Details Foam stagarred stance Reps/Duration 30 x 3 Comments reaching backward reaching: left and right alternate feet PT-OP-T Assessment and Plan Start: 02/14/19 17:38 Freq: Status: Active Protocol: Document 03/21/19 13:41 EA (Rec: 03/21/19 13:47 EA [id number]) Physical Therapy Assessment Assessment Summary Assessment Fatigue after cardio machines . Checked vitals and WFL. Backwards cones zig zag improves at this time . Physical Therapy Plan Next Visit Focus/Plan Next Note Type Treatment Note Next Visit Plan Cont dynamic stability in backward motion.
--- NOTE | 2019-03-23 09:11 | PT-OP ANOTE ---
Spoke to patient's at 912 today and reports patient called front office to cancel today's appointment. She reports that patient is not feeling well and thinks from lack of proper hydration.
--- NOTE | 2019-03-28 13:50 | PT.OTN ---
Current Diagnoses Polyneuropathy, unspecified (03/28/19) Other abnormalities of gait and mobility (03/28/19) Physical Therapy Treatment Note PT-OP-A Visit Information Start: 02/14/19 17:38 Freq: Status: Active Protocol: Document 03/28/19 12:55 EA (Rec: 03/28/19 13:01 EA [id number]) Out-Patient Physical Therapy Visit Information Visit Information Visit Type Treatment Note Visit Start Time 09:45 Visit Stop Time 10:25 Total Visit Minutes 39 Visit Number 8 PT-OP-B Current Condition Start: 02/14/19 17:38 Freq: Status: Active Protocol: Document 02/15/19 17:35 EA (Rec: 02/16/19 07:52 EA [id number]) Current Condition History of Current Condition Onset Date 02/11/2019 Current Complaints Gait difficulty and left leg neuropathic pain History of Current Condition 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 Had formal PT after amputation and was able to walk with no AD on level surface; states discharge to PT last 2017 due to abnormal vitals and currently stable after medication adjustments. He reports that has been bothered with his balance and pain to leg foot right after having a BF and decreased once in supine position. He denies low back pain or radiating pain from buttok to posterior thigh. He mentioned that his balance is off with stairs and uneven surface without the use of AD. Prior Treatments and Tests Formal PT in 2016/2017 after R BKA. Future Testing and Treatments Planned None identified. Treatment Goals Patient/Caregiver Goals 1. I would like to turn and walk backward without losing my balance 2. I would like to decreased my left toe throbbing pain Prior Functional Status Baseline Function- ADL's Independent Baseline Function- Mobility Independent Baseline Function- Gait Indep with no limitation prior to 2016 BKA Baseline Function- Work/School Retired Baseline Function- Recreation/Hobbies Active lifetsyle with ability to walk more than 5 mile /week and regular resistance training prior to 2016 BKA Current Functional Impairments (Reported) Functional Limitations- ADL's Indep in all except driving and long distance ambulation. Functional Limitations- Mobility/Gait Able to ambulate with no AD on level surface less than a mile. Difficulty with > a mile amb and uneven surface without AD. Difficulty with back santa stepping Functional Limitations- Work/School Retired Functional Limitations- Recreation/ Unable to perform 2017 hobbies Hobbies : long distance walks, regular fitness exercises Personal Factors Other Personal Factors That May Effect Pacemakes, Ocassional Therapy/Recovery dizziness, CHF PT-OP-C Subjective Start: 02/14/19 17:38 Freq: Status: Active Protocol: Document 03/28/19 12:55 EA (Rec: 03/28/19 13:01 EA [id number]) OP-PT Subjective Patient Comments Patient Comments Pt reports left foot pain occurs after having meal. PT-OP-D Balance Start: 02/14/19 17:38 Freq: Status: Active Protocol: Document 02/16/19 07:16 EA (Rec: 02/16/19 07:52 EA [id number]) OP-PT Balance Assessment Sitting Balance Static Sitting Balance Ability Normal Dynamic Sitting Balance Ability Normal Standing Balance Static Standing Balance Ability Good Dynamic Standing Balance Ability Fair Balance Tests Functional Reach Functional Reach Test 8 Functional Reach Impairment Rating 20 to <40% Impaired (Score 7-8 ) Single Limb Standing Single Limb- Right unable Single Limb- Left Less than 3seconds Tandem Tandem Standing < 5 seconds with Mccann Balance Assessment Evaluation Sitting to Standing Ability Independent w/Hands Unsupported Stance Safely- 2 minutes Standing to Sitting Ability Safely, Minimal Hand Use Transfer Ability Safely, Hand Use Unsupported Stance- Eyes Closed Safely, 10 seconds Unsupported Stance- Eyes Open Independent, 1 minute Reaching Forward Standing Safely, 5 inches Pick- Up Object From Floor Independent/Safe Look Behind Shoulder - Standing Shifts Weight Unilateral Turning 360 Degrees Turns , < 4 secs Unsupported Stance, Alternating Feet on (I)- 8 Steps in > 20 secs Stair Unsupported Tandem Stance Small Step- 30 seconds Unilateral Leg Stance Lifts Leg/Holds > 3 secs Total Score Mccann Total Score (out of 56 points) 42 Mccann Impairment Rating 20 to 39% Impaired (Score 34- 44) Tinetti Balance Assessment Sitting Balance Sitting Balance Steady, safe Arising from Chair Ability to Arise Able, w/o using arms Attempts to Arise Arises on 1st attempt Standing Balance Immediate Standing Balance Steady w/o support Standing Balance Steady, wide stance Nudged Response Steady Standing with Eyes Closed Steady Turning Step Pattern Turning 360 Degrees Continuous steps Stability Turning 360 Degrees Steady Sitting Down Sitting Down Uses arms or unsteady Gait and Step Initiation of Gait No hesitancy Right Foot Step Length Does pass stance foot Right Foot Step Height Completely clears floor Left Foot Step Length Does pass stance foot Left Foot Step Height Completely clears floor Step Description Step Symmetry Step length not equal Gait Description Path Description Straight Trunk Description No sway but posturing Walking Stance Heels apart Scoring and Interpretation Tinetti Composite Score (points) 22 Tinetti Impairment Rating from Composite 20 to <40% Impaired (Score 17- Score 22) Cas[place] Fall Scale Copyright Permission PT-OP-E Functional Tests Start: 02/14/19 17:38 Freq: Status: Active Protocol: Document 02/15/19 17:35 EA (Rec: 02/16/19 07:52 EA [id number]) Functional Tests Timed Up and Go (TUG) Score 12 TUG Impairment Rating 20 to <40% Impaired (Score 12- 13) PT-OP-F Manual Assessment Start: 02/14/19 17:38 Freq: Status: Active Protocol: Document 02/15/19 17:35 EA (Rec: 02/16/19 07:52 EA [id number]) Manual Assessments Soft Tissue Assessment Soft Tissue Mobility Assessment left 2nd toe extnsor contracture, rest of the toes are flexed tight. Joint Mobility Assessment Joint Mobility Assessment Hypo mobility to left IP/PIP toe joints. PT-OP-G Mobility & Gait Start: 02/14/19 17:38 Freq: Status: Active Protocol: Document 02/15/19 17:35 EA (Rec: 02/16/19 07:52 EA [id number]) OP Mobility Evaluation Bed Mobility Rolling indep Supine to and from Sit indep Transfers Sit to Stand indep Bed to Chair Transfers indep Car Transfers indep Floor Transfers Unable Functional Movements Lifting and Carrying difficulty Squats difficulty Running Assessment Unable OP Gait Assessment Gait Gait Assistance Required: Independent Distance (Feet) 150 Able to Maintain Weight Bearing Status Yes During Gait Assistive Devices Assistive Device None Orthotic/Prosthetic Devices or Brace: Yes Gait Deviations General Gait Pattern Lateral Trunk Lean Factors Limiting Gait Function Factors Limiting Gait Function Decreased Strength Poor Balance PT-OP-H Neuro Start: 02/14/19 17:38 Freq: Status: Active Protocol: Document 02/15/19 17:35 EA (Rec: 02/16/19 07:52 EA [id number]) Sensation Evaluation Gross Sensation Gross Sensation Left LE Impaired Right LE Impaired Sensation Description Numbness P[place] & [place] Pain Phantom Pain Dermatome Impairments L3 L4 L5 S1 PT-OP-J Posture/Palpation/Skin Start: 02/14/19 17:38 Freq: Status: Active Protocol: Document 02/15/19 17:35 EA (Rec: 02/16/19 07:52 EA [id number]) Posture Evaluation Position Standing Evaluation View post/ant Comments Posture Comments Fair general posture. No signs of right knee recurvatum. Palpation Assessment Location One Palpation Location left toes. Palpation Findings Tenderness Skin Assessment Other Assessments Skin Assessment Comments No open skin condition or signs or edema on both feet. Slight discoloration that resembels to diabetc foot is noted to left foot, however easy blanching is evident with tests. PT-OP-K Range of Motion Start: 02/14/19 17:38 Freq: Status: Active Protocol: Document 02/15/19 17:35 EA (Rec: 02/16/19 07:52 EA [id number]) Knee Goniometric Range of Motion Knee ROM Limitations Comments WFL on both knees Ankle and Foot Goniometric Range of Motion Ankle and Foot Left Active Ankle/Foot ROM WFL Yes PT-OP-M Strength Start: 02/14/19 17:38 Freq: Status: Active Protocol: Document 02/15/19 17:35 EA (Rec: 02/16/19 07:52 EA [id number]) Hip Strength Hip Manual Muscle Testing Left Reason Not Measured WFL Right Flexion (L2) 4- Good- Abduction 4- Good- Adduction 4- Good- External Rotation 4- Good- Internal Rotation 4- Good- Knee Strength Knee Manual Muscle Testing Right Reason Not Measured WFL Left Reason Not Measured WFL Ankle/Foot Strength Ankle and Foot Manual Muscle Testing Left Dorsiflexion (L4) 4 Good Plantarflexion (S1) 4 Good Inversion 4 Good Eversion (S1) 4 Good Toe Strength Toe Manual Muscle Testing Left Great Toe Flexion 4- Good- Extension 4- Good- PT-OP-Q Treatments Start: 02/14/19 17:38 Freq: Status: Active Protocol: Document 03/28/19 12:55 EA (Rec: 03/28/19 13:01 EA [id number]) Cardio Equipment Recumbent Stepper (Sci-Fit) Duration (Minutes) 6 Resistance 3 Gym Equipment Shuttle Balance 1 Details NBOS: ballon toss Comments x5 mins Sport Cord 1 Exercise Details fwd/bwd/swd Cord/Resistance red Reps/Duration x 4-5 laps each Therapeutic Exercises Standing Exercises 5 Standing Exercise Name SLS Reps/Minutes x 10 reps each leg Comments HEP comp 3 Standing Exercise Name Foam Tandem NBOS/EO/EC/ arm challenge Reps/Minutes x 6 mins Comments Trunk rot front and back w/ reaching 1 Standing Exercise Name Cone zig-zag backward stepping Reps/Minutes x 7 mins Neuro Re-Education Treatment Balance Activities 4 Details BWD/SWD stepping Surface Wide foam matress Reps/Duration x 5 mins Comments SBA 3 Details BUSO Step up/down with single to double hand support in // bars Reps/Duration 30 sec x 5 1 Details T-pods: stepping Reps/Duration x 5 mins Comments rails PRN with CGA PT-OP-T Assessment and Plan Start: 02/14/19 17:38 Freq: Status: Active Protocol: Document 03/28/19 12:55 EA (Rec: 03/28/19 13:01 EA [id number]) Physical Therapy Assessment Assessment Summary Assessment Less fatigue at this time with less cardio machines resistance. Recommended to his doctor for possible systemic pain origin on his left foot. Balance and strengthening exercises is working good with instability still noted during trunk rotation. Physical Therapy Plan Next Visit Focus/Plan Next Note Type Treatment Note Next Visit Plan Cont dynamic stability in backward motion.
--- NOTE | 2019-03-30 11:05 | PT.OTN ---
Current Diagnoses Polyneuropathy, unspecified (03/30/19) Other abnormalities of gait and mobility (03/30/19) Physical Therapy Treatment Note PT-OP-A Visit Information Start: 02/14/19 17:38 Freq: Status: Active Protocol: Document 03/30/19 10:25 EA (Rec: 03/30/19 10:32 EA [id number]) Out-Patient Physical Therapy Visit Information Visit Information Visit Type Treatment Note Visit Start Time 09:45 Visit Stop Time 10:25 Total Visit Minutes 40 Visit Number 9 PT-OP-B Current Condition Start: 02/14/19 17:38 Freq: Status: Active Protocol: Document 02/15/19 17:35 EA (Rec: 02/16/19 07:52 EA [id number]) Current Condition History of Current Condition Onset Date 02/11/2019 Current Complaints Gait difficulty and left leg neuropathic pain History of Current Condition 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 Had formal PT after amputation and was able to walk with no AD on level surface; states discharge to PT last 2017 due to abnormal vitals and currently stable after medication adjustments. He reports that has been bothered with his balance and pain to leg foot right after having a BF and decreased once in supine position. He denies low back pain or radiating pain from buttok to posterior thigh. He mentioned that his balance is off with stairs and uneven surface without the use of AD. Prior Treatments and Tests Formal PT in 2016/2017 after R BKA. Future Testing and Treatments Planned None identified. Treatment Goals Patient/Caregiver Goals 1. I would like to turn and walk backward without losing my balance 2. I would like to decreased my left toe throbbing pain Prior Functional Status Baseline Function- ADL's Independent Baseline Function- Mobility Independent Baseline Function- Gait Indep with no limitation prior to 2016 BKA Baseline Function- Work/School Retired Baseline Function- Recreation/Hobbies Active lifetsyle with ability to walk more than 5 mile /week and regular resistance training prior to 2016 BKA Current Functional Impairments (Reported) Functional Limitations- ADL's Indep in all except driving and long distance ambulation. Functional Limitations- Mobility/Gait Able to ambulate with no AD on level surface less than a mile. Difficulty with > a mile amb and uneven surface without AD. Difficulty with back santa stepping Functional Limitations- Work/School Retired Functional Limitations- Recreation/ Unable to perform 2016 hobbies Hobbies : long distance walks, regular fitness exercises Personal Factors Other Personal Factors That May Effect Pacemakes, Ocassional Therapy/Recovery dizziness, CHF PT-OP-C Subjective Start: 02/14/19 17:38 Freq: Status: Active Protocol: Document 03/30/19 10:25 EA (Rec: 03/30/19 10:32 EA [id number]) OP-PT Subjective Patient Comments Patient Comments Pt reports compliant with HEP. PT-OP-D Balance Start: 02/14/19 17:38 Freq: Status: Active Protocol: Document 02/16/19 07:16 EA (Rec: 02/16/19 07:52 EA [id number]) OP-PT Balance Assessment Sitting Balance Static Sitting Balance Ability Normal Dynamic Sitting Balance Ability Normal Standing Balance Static Standing Balance Ability Good Dynamic Standing Balance Ability Fair Balance Tests Functional Reach Functional Reach Test 8 Functional Reach Impairment Rating 20 to <40% Impaired (Score 7-8 ) Single Limb Standing Single Limb- Right unable Single Limb- Left Less than 3seconds Tandem Tandem Standing < 5 seconds with Mccann Balance Assessment Evaluation Sitting to Standing Ability Independent w/Hands Unsupported Stance Safely- 2 minutes Standing to Sitting Ability Safely, Minimal Hand Use Transfer Ability Safely, Hand Use Unsupported Stance- Eyes Closed Safely, 10 seconds Unsupported Stance- Eyes Open Independent, 1 minute Reaching Forward Standing Safely, 5 inches Pick- Up Object From Floor Independent/Safe Look Behind Shoulder - Standing Shifts Weight Unilateral Turning 360 Degrees Turns , < 4 secs Unsupported Stance, Alternating Feet on (I)- 8 Steps in > 20 secs Stair Unsupported Tandem Stance Small Step- 30 seconds Unilateral Leg Stance Lifts Leg/Holds > 3 secs Total Score Mccann Total Score (out of 56 points) 42 Mccann Impairment Rating 20 to 39% Impaired (Score 34- 44) Tinetti Balance Assessment Sitting Balance Sitting Balance Steady, safe Arising from Chair Ability to Arise Able, w/o using arms Attempts to Arise Arises on 1st attempt Standing Balance Immediate Standing Balance Steady w/o support Standing Balance Steady, wide stance Nudged Response Steady Standing with Eyes Closed Steady Turning Step Pattern Turning 360 Degrees Continuous steps Stability Turning 360 Degrees Steady Sitting Down Sitting Down Uses arms or unsteady Gait and Step Initiation of Gait No hesitancy Right Foot Step Length Does pass stance foot Right Foot Step Height Completely clears floor Left Foot Step Length Does pass stance foot Left Foot Step Height Completely clears floor Step Description Step Symmetry Step length not equal Gait Description Path Description Straight Trunk Description No sway but posturing Walking Stance Heels apart Scoring and Interpretation Tinetti Composite Score (points) 22 Tinetti Impairment Rating from Composite 20 to <40% Impaired (Score 17- Score 22) Casillas Fall Scale Copyright Permission PT-OP-E Functional Tests Start: 02/14/19 17:38 Freq: Status: Active Protocol: Document 02/15/19 17:35 EA (Rec: 02/16/19 07:52 EA [id number]) Functional Tests Timed Up and Go (TUG) Score 12 TUG Impairment Rating 20 to <40% Impaired (Score 12- 13) PT-OP-F Manual Assessment Start: 02/14/19 17:38 Freq: Status: Active Protocol: Document 02/15/19 17:35 EA (Rec: 02/16/19 07:52 EA [id number]) Manual Assessments Soft Tissue Assessment Soft Tissue Mobility Assessment left 2nd toe extnsor contracture, rest of the toes are flexed tight. Joint Mobility Assessment Joint Mobility Assessment Hypo mobility to left IP/PIP toe joints. PT-OP-G Mobility & Gait Start: 02/14/19 17:38 Freq: Status: Active Protocol: Document 02/15/19 17:35 EA (Rec: 02/16/19 07:52 EA [id number]) OP Mobility Evaluation Bed Mobility Rolling indep Supine to and from Sit indep Transfers Sit to Stand indep Bed to Chair Transfers indep Car Transfers indep Floor Transfers Unable Functional Movements Lifting and Carrying difficulty Squats difficulty Running Assessment Unable OP Gait Assessment Gait Gait Assistance Required: Independent Distance (Feet) 150 Able to Maintain Weight Bearing Status Yes During Gait Assistive Devices Assistive Device None Orthotic/Prosthetic Devices or Brace: Yes Gait Deviations General Gait Pattern Lateral Trunk Lean Factors Limiting Gait Function Factors Limiting Gait Function Decreased Strength Poor Balance PT-OP-H Neuro Start: 02/14/19 17:38 Freq: Status: Active Protocol: Document 02/15/19 17:35 EA (Rec: 02/16/19 07:52 EA [id number]) Sensation Evaluation Gross Sensation Gross Sensation Left LE Impaired Right LE Impaired Sensation Description Numbness Pins & [place] Pain Phantom Pain Dermatome Impairments L3 L4 L5 S1 PT-OP-J Posture/Palpation/Skin Start: 02/14/19 17:38 Freq: Status: Active Protocol: Document 02/15/19 17:35 EA (Rec: 02/16/19 07:52 EA [id number]) Posture Evaluation Position Standing Evaluation View post/ant Comments Posture Comments Fair general posture. No signs of right knee recurvatum. Palpation Assessment Location One Palpation Location left toes. Palpation Findings Tenderness Skin Assessment Other Assessments Skin Assessment Comments No open skin condition or signs or edema on both feet. Slight discoloration that resembels to diabetc foot is noted to left foot, however easy blanching is evident with tests. PT-OP-K Range of Motion Start: 02/14/19 17:38 Freq: Status: Active Protocol: Document 02/15/19 17:35 EA (Rec: 02/16/19 07:52 EA [id number]) Knee Goniometric Range of Motion Knee ROM Limitations Comments WFL on both knees Ankle and Foot Goniometric Range of Motion Ankle and Foot Left Active Ankle/Foot ROM WFL Yes PT-OP-M Strength Start: 02/14/19 17:38 Freq: Status: Active Protocol: Document 02/15/19 17:35 EA (Rec: 02/16/19 07:52 EA [id number]) Hip Strength Hip Manual Muscle Testing Left Reason Not Measured WFL Right Flexion (L2) 4- Good- Abduction 4- Good- Adduction 4- Good- External Rotation 4- Good- Internal Rotation 4- Good- Knee Strength Knee Manual Muscle Testing Right Reason Not Measured WFL Left Reason Not Measured WFL Ankle/Foot Strength Ankle and Foot Manual Muscle Testing Left Dorsiflexion (L4) 4 Good Plantarflexion (S1) 4 Good Inversion 4 Good Eversion (S1) 4 Good Toe Strength Toe Manual Muscle Testing Left Great Toe Flexion 4- Good- Extension 4- Good- PT-OP-Q Treatments Start: 02/14/19 17:38 Freq: Status: Active Protocol: Document 03/30/19 10:25 EA (Rec: 03/30/19 10:32 EA [id number]) Gym Equipment Sport Cord 1 Exercise Details fwd/bwd/swd Cord/Resistance red Reps/Duration x 5 laps each Therapeutic Exercises Standing Exercises 5 Standing Exercise Name SLS Reps/Minutes x 10 reps each leg 3 Standing Exercise Name Foam Tandem NBOS/EO/EC/ arm challenge Reps/Minutes 8 mins Comments Trunk rot front and back w/ reaching 1 Standing Exercise Name Cone zig-zag backward stepping Reps/Minutes x 5 mins Neuro Re-Education Treatment Balance Activities 4 Details BWD/SWD stepping Surface Wide foam matress Reps/Duration x 5 mins Comments CGA. Ball throws, balloon toss 2 Details Foam stagarred stance Reps/Duration 30 x 3 Comments reaching backward reaching: left and right alternate feet 1 Details Wobble board: tilt SWD/FWD Reps/Duration 5 mins Comments //bars PRN. arm raises/trunk rotations PT-OP-T Assessment and Plan Start: 02/14/19 17:38 Freq: Status: Active Protocol: Document 03/30/19 10:25 EA (Rec: 03/30/19 10:32 EA [id number]) Physical Therapy Assessment Assessment Summary Assessment Noted improved tolerance and stability today. Trunk rotation and reaching back santa shows good stability at this time; however still requires CGA for safety. Physical Therapy Plan Next Visit Focus/Plan Next Note Type Treatment Note Next Visit Plan Cont dynamic stability in backward motion.
--- NOTE | 2019-04-04 11:09 | PT.OTN ---
Current Diagnoses Polyneuropathy, unspecified (04/04/19) Other abnormalities of gait and mobility (04/04/19) Physical Therapy Treatment Note PT-OP-A Visit Information Start: 02/14/19 17:38 Freq: Status: Active Protocol: Document 04/04/19 10:28 EA (Rec: 04/04/19 10:32 EA [id number]) Out-Patient Physical Therapy Visit Information Visit Information Visit Type Treatment Note Visit Start Time 09:45 Visit Stop Time 10:25 Total Visit Minutes 41 Visit Number 10 PT-OP-B Current Condition Start: 02/14/19 17:38 Freq: Status: Active Protocol: Document 02/15/19 17:35 EA (Rec: 02/16/19 07:52 EA [id number]) Current Condition History of Current Condition Onset Date 02/11/2019 Current Complaints Gait difficulty and left leg neuropathic pain History of Current Condition 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 Had formal PT after amputation and was able to walk with no AD on level surface; states discharge to PT last 2017 due to abnormal vitals and currently stable after medication adjustments. He reports that has been bothered with his balance and pain to leg foot right after having a BF and decreased once in supine position. He denies low back pain or radiating pain from buttok to posterior thigh. He mentioned that his balance is off with stairs and uneven surface without the use of AD. Prior Treatments and Tests Formal PT in 2016/2017 after R BKA. Future Testing and Treatments Planned None identified. Treatment Goals Patient/Caregiver Goals 1. I would like to turn and walk backward without losing my balance 2. I would like to decreased my left toe throbbing pain Prior Functional Status Baseline Function- ADL's Independent Baseline Function- Mobility Independent Baseline Function- Gait Indep with no limitation prior to 2016 BKA Baseline Function- Work/School Retired Baseline Function- Recreation/Hobbies Active lifetsyle with ability to walk more than 5 mile /week and regular resistance training prior to 2016 BKA Current Functional Impairments (Reported) Functional Limitations- ADL's Indep in all except driving and long distance ambulation. Functional Limitations- Mobility/Gait Able to ambulate with no AD on level surface less than a mile. Difficulty with > a mile amb and uneven surface without AD. Difficulty with back santa stepping Functional Limitations- Work/School Retired Functional Limitations- Recreation/ Unable to perform 2017 hobbies Hobbies : long distance walks, regular fitness exercises Personal Factors Other Personal Factors That May Effect Pacemakes, Ocassional Therapy/Recovery dizziness, CHF PT-OP-C Subjective Start: 02/14/19 17:38 Freq: Status: Active Protocol: Document 04/04/19 10:28 EA (Rec: 04/04/19 10:32 EA [id number]) OP-PT Subjective Patient Comments Patient Comments Pt reports he feels his balance is improving wel; states no falls in the past weeks. PT-OP-D Balance Start: 02/14/19 17:38 Freq: Status: Active Protocol: Document 02/16/19 07:16 EA (Rec: 02/16/19 07:52 EA [id number]) OP-PT Balance Assessment Sitting Balance Static Sitting Balance Ability Normal Dynamic Sitting Balance Ability Normal Standing Balance Static Standing Balance Ability Good Dynamic Standing Balance Ability Fair Balance Tests Functional Reach Functional Reach Test 8 Functional Reach Impairment Rating 20 to <40% Impaired (Score 7-8 ) Single Limb Standing Single Limb- Right unable Single Limb- Left Less than 3seconds Tandem Tandem Standing < 5 seconds with Mccann Balance Assessment Evaluation Sitting to Standing Ability Independent w/Hands Unsupported Stance Safely- 2 minutes Standing to Sitting Ability Safely, Minimal Hand Use Transfer Ability Safely, Hand Use Unsupported Stance- Eyes Closed Safely, 10 seconds Unsupported Stance- Eyes Open Independent, 1 minute Reaching Forward Standing Safely, 5 inches Pick- Up Object From Floor Independent/Safe Look Behind Shoulder - Standing Shifts Weight Unilateral Turning 360 Degrees Turns , < 4 secs Unsupported Stance, Alternating Feet on (I)- 8 Steps in > 20 secs Stair Unsupported Tandem Stance Small Step- 30 seconds Unilateral Leg Stance Lifts Leg/Holds > 3 secs Total Score Mccann Total Score (out of 56 points) 42 Mccann Impairment Rating 20 to 39% Impaired (Score 34- 44) Tinetti Balance Assessment Sitting Balance Sitting Balance Steady, safe Arising from Chair Ability to Arise Able, w/o using arms Attempts to Arise Arises on 1st attempt Standing Balance Immediate Standing Balance Steady w/o support Standing Balance Steady, wide stance Nudged Response Steady Standing with Eyes Closed Steady Turning Step Pattern Turning 360 Degrees Continuous steps Stability Turning 360 Degrees Steady Sitting Down Sitting Down Uses arms or unsteady Gait and Step Initiation of Gait No hesitancy Right Foot Step Length Does pass stance foot Right Foot Step Height Completely clears floor Left Foot Step Length Does pass stance foot Left Foot Step Height Completely clears floor Step Description Step Symmetry Step length not equal Gait Description Path Description Straight Trunk Description No sway but posturing Walking Stance Heels apart Scoring and Interpretation Tinetti Composite Score (points) 22 Tinetti Impairment Rating from Composite 20 to <40% Impaired (Score 17- Score 22) Casillas Fall Scale Copyright Permission PT-OP-E Functional Tests Start: 02/14/19 17:38 Freq: Status: Active Protocol: Document 02/15/19 17:35 EA (Rec: 02/16/19 07:52 EA [id number]) Functional Tests Timed Up and Go (TUG) Score 12 TUG Impairment Rating 20 to <40% Impaired (Score 12- 13) PT-OP-F Manual Assessment Start: 02/14/19 17:38 Freq: Status: Active Protocol: Document 02/15/19 17:35 EA (Rec: 02/16/19 07:52 EA [id number]) Manual Assessments Soft Tissue Assessment Soft Tissue Mobility Assessment left 2nd toe extnsor contracture, rest of the toes are flexed tight. Joint Mobility Assessment Joint Mobility Assessment Hypo mobility to left IP/PIP toe joints. PT-OP-G Mobility & Gait Start: 02/14/19 17:38 Freq: Status: Active Protocol: Document 02/15/19 17:35 EA (Rec: 02/16/19 07:52 EA [id number]) OP Mobility Evaluation Bed Mobility Rolling indep Supine to and from Sit indep Transfers Sit to Stand indep Bed to Chair Transfers indep Car Transfers indep Floor Transfers Unable Functional Movements Lifting and Carrying difficulty Squats difficulty Running Assessment Unable OP Gait Assessment Gait Gait Assistance Required: Independent Distance (Feet) 150 Able to Maintain Weight Bearing Status Yes During Gait Assistive Devices Assistive Device None Orthotic/Prosthetic Devices or Brace: Yes Gait Deviations General Gait Pattern Lateral Trunk Lean Factors Limiting Gait Function Factors Limiting Gait Function Decreased Strength Poor Balance PT-OP-H Neuro Start: 02/14/19 17:38 Freq: Status: Active Protocol: Document 02/15/19 17:35 EA (Rec: 02/16/19 07:52 EA [id number]) Sensation Evaluation Gross Sensation Gross Sensation Left LE Impaired Right LE Impaired Sensation Description Numbness Pins & [place] Pain Phantom Pain Dermatome Impairments L3 L4 L5 S1 PT-OP-J Posture/Palpation/Skin Start: 02/14/19 17:38 Freq: Status: Active Protocol: Document 02/15/19 17:35 EA (Rec: 02/16/19 07:52 EA [id number]) Posture Evaluation Position Standing Evaluation View post/ant Comments Posture Comments Fair general posture. No signs of right knee recurvatum. Palpation Assessment Location One Palpation Location left toes. Palpation Findings Tenderness Skin Assessment Other Assessments Skin Assessment Comments No open skin condition or signs or edema on both feet. Slight discoloration that resembels to diabetc foot is noted to left foot, however easy blanching is evident with tests. PT-OP-K Range of Motion Start: 02/14/19 17:38 Freq: Status: Active Protocol: Document 02/15/19 17:35 EA (Rec: 02/16/19 07:52 EA [id number]) Knee Goniometric Range of Motion Knee ROM Limitations Comments WFL on both knees Ankle and Foot Goniometric Range of Motion Ankle and Foot Left Active Ankle/Foot ROM WFL Yes PT-OP-M Strength Start: 02/14/19 17:38 Freq: Status: Active Protocol: Document 02/15/19 17:35 EA (Rec: 02/16/19 07:52 EA [id number]) Hip Strength Hip Manual Muscle Testing Left Reason Not Measured WFL Right Flexion (L2) 4- Good- Abduction 4- Good- Adduction 4- Good- External Rotation 4- Good- Internal Rotation 4- Good- Knee Strength Knee Manual Muscle Testing Right Reason Not Measured WFL Left Reason Not Measured WFL Ankle/Foot Strength Ankle and Foot Manual Muscle Testing Left Dorsiflexion (L4) 4 Good Plantarflexion (S1) 4 Good Inversion 4 Good Eversion (S1) 4 Good Toe Strength Toe Manual Muscle Testing Left Great Toe Flexion 4- Good- Extension 4- Good- PT-OP-Q Treatments Start: 02/14/19 17:38 Freq: Status: Active Protocol: Document 04/04/19 10:28 EA (Rec: 04/04/19 10:32 EA [id number]) Gym Equipment Sport Cord 1 Exercise Details fwd/bwd/swd Cord/Resistance red Reps/Duration x 5 laps each Comments sdie squat and reach Therapeutic Exercises Standing Exercises 5 Standing Exercise Name SLS Reps/Minutes x 10 reps each leg 3 Standing Exercise Name Foam Tandem NBOS/EO/EC/ arm challenge Reps/Minutes 4 mins Comments Trunk rot front and back w/ reaching 1 Standing Exercise Name Cone zig-zag backward stepping Reps/Minutes x 5 mins Neuro Re-Education Treatment Balance Activities 4 Details BWD/SWD stepping Surface Wide foam matress Reps/Duration x 5 mins Comments CGA. Ball throws, balloon toss 2 Details Foam stagarred stance Reps/Duration 30 x 3 Comments reaching backward reaching: left and right alternate feet 1 Details Wobble board: tilt SWD/FWD Reps/Duration 5 mins Comments //bars PRN. arm raises/trunk rotations PT-OP-T Assessment and Plan Start: 02/14/19 17:38 Freq: Status: Active Protocol: Document 04/04/19 10:28 EA (Rec: 04/04/19 10:32 EA [id number]) Physical Therapy Assessment Assessment Summary Assessment Improved standing dynamic balance. No left foot pain complaint at this time. Physical Therapy Plan Next Visit Focus/Plan Next Note Type Treatment Note Next Visit Plan Cont dynamic stability in backward motion.
--- NOTE | 2019-04-06 11:13 | PT.OTN ---
Current Diagnoses Polyneuropathy, unspecified (04/06/19) Other abnormalities of gait and mobility (04/06/19) Physical Therapy Treatment Note PT-OP-A Visit Information Start: 02/14/19 17:38 Freq: Status: Active Protocol: Document 04/06/19 11:02 EA (Rec: 04/06/19 11:13 EA [id number]) Out-Patient Physical Therapy Visit Information Visit Information Visit Type Treatment Note Visit Start Time 09:45 Visit Stop Time 10:25 Total Visit Minutes 40 Visit Number 11 PT-OP-B Current Condition Start: 02/14/19 17:38 Freq: Status: Active Protocol: Document 02/15/19 17:35 EA (Rec: 02/16/19 07:52 EA [id number]) Current Condition History of Current Condition Onset Date 02/11/2019 Current Complaints Gait difficulty and left leg neuropathic pain History of Current Condition 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 Had formal PT after amputation and was able to walk with no AD on level surface; states discharge to PT last 2017 due to abnormal vitals and currently stable after medication adjustments. He reports that has been bothered with his balance and pain to leg foot right after having a BF and decreased once in supine position. He denies low back pain or radiating pain from buttok to posterior thigh. He mentioned that his balance is off with stairs and uneven surface without the use of AD. Prior Treatments and Tests Formal PT in 2016/2017 after R BKA. Future Testing and Treatments Planned None identified. Treatment Goals Patient/Caregiver Goals 1. I would like to turn and walk backward without losing my balance 2. I would like to decreased my left toe throbbing pain Prior Functional Status Baseline Function- ADL's Independent Baseline Function- Mobility Independent Baseline Function- Gait Indep with no limitation prior to 2016 BKA Baseline Function- Work/School Retired Baseline Function- Recreation/Hobbies Active lifetsyle with ability to walk more than 5 mile /week and regular resistance training prior to 2016 BKA Current Functional Impairments (Reported) Functional Limitations- ADL's Indep in all except driving and long distance ambulation. Functional Limitations- Mobility/Gait Able to ambulate with no AD on level surface less than a mile. Difficulty with > a mile amb and uneven surface without AD. Difficulty with back santa stepping Functional Limitations- Work/School Retired Functional Limitations- Recreation/ Unable to perform 2017 hobbies Hobbies : long distance walks, regular fitness exercises Personal Factors Other Personal Factors That May Effect Pacemakes, Ocassional Therapy/Recovery dizziness, CHF PT-OP-C Subjective Start: 02/14/19 17:38 Freq: Status: Active Protocol: Document 04/06/19 11:02 EA (Rec: 04/06/19 11:13 EA [id number]) OP-PT Subjective Patient Comments Patient Comments My regular PT is helping me a lot. Patient Reported Progress Improving PT-OP-D Balance Start: 02/14/19 17:38 Freq: Status: Active Protocol: Document 02/16/19 07:16 EA (Rec: 02/16/19 07:52 EA [id number]) OP-PT Balance Assessment Sitting Balance Static Sitting Balance Ability Normal Dynamic Sitting Balance Ability Normal Standing Balance Static Standing Balance Ability Good Dynamic Standing Balance Ability Fair Balance Tests Functional Reach Functional Reach Test 8 Functional Reach Impairment Rating 20 to <40% Impaired (Score 7-8 ) Single Limb Standing Single Limb- Right unable Single Limb- Left Less than 3seconds Tandem Tandem Standing < 5 seconds with Mccann Balance Assessment Evaluation Sitting to Standing Ability Independent w/Hands Unsupported Stance Safely- 2 minutes Standing to Sitting Ability Safely, Minimal Hand Use Transfer Ability Safely, Hand Use Unsupported Stance- Eyes Closed Safely, 10 seconds Unsupported Stance- Eyes Open Independent, 1 minute Reaching Forward Standing Safely, 5 inches Pick- Up Object From Floor Independent/Safe Look Behind Shoulder - Standing Shifts Weight Unilateral Turning 360 Degrees Turns , < 4 secs Unsupported Stance, Alternating Feet on (I)- 8 Steps in > 20 secs Stair Unsupported Tandem Stance Small Step- 30 seconds Unilateral Leg Stance Lifts Leg/Holds > 3 secs Total Score Mccann Total Score (out of 56 points) 42 Mccann Impairment Rating 20 to 39% Impaired (Score 34- 44) Tinetti Balance Assessment Sitting Balance Sitting Balance Steady, safe Arising from Chair Ability to Arise Able, w/o using arms Attempts to Arise Arises on 1st attempt Standing Balance Immediate Standing Balance Steady w/o support Standing Balance Steady, wide stance Nudged Response Steady Standing with Eyes Closed Steady Turning Step Pattern Turning 360 Degrees Continuous steps Stability Turning 360 Degrees Steady Sitting Down Sitting Down Uses arms or unsteady Gait and Step Initiation of Gait No hesitancy Right Foot Step Length Does pass stance foot Right Foot Step Height Completely clears floor Left Foot Step Length Does pass stance foot Left Foot Step Height Completely clears floor Step Description Step Symmetry Step length not equal Gait Description Path Description Straight Trunk Description No sway but posturing Walking Stance Heels apart Scoring and Interpretation Tinetti Composite Score (points) 22 Tinetti Impairment Rating from Composite 20 to <40% Impaired (Score 17- Score 22) Casillas Fall Scale Copyright Permission PT-OP-E Functional Tests Start: 02/14/19 17:38 Freq: Status: Active Protocol: Document 02/15/19 17:35 EA (Rec: 02/16/19 07:52 EA [id number]) Functional Tests Timed Up and Go (TUG) Score 12 TUG Impairment Rating 20 to <40% Impaired (Score 12- 13) PT-OP-F Manual Assessment Start: 02/14/19 17:38 Freq: Status: Active Protocol: Document 02/15/19 17:35 EA (Rec: 02/16/19 07:52 EA [id number]) Manual Assessments Soft Tissue Assessment Soft Tissue Mobility Assessment left 2nd toe extnsor contracture, rest of the toes are flexed tight. Joint Mobility Assessment Joint Mobility Assessment Hypo mobility to left IP/PIP toe joints. PT-OP-G Mobility & Gait Start: 02/14/19 17:38 Freq: Status: Active Protocol: Document 02/15/19 17:35 EA (Rec: 02/16/19 07:52 EA [id number]) OP Mobility Evaluation Bed Mobility Rolling indep Supine to and from Sit indep Transfers Sit to Stand indep Bed to Chair Transfers indep Car Transfers indep Floor Transfers Unable Functional Movements Lifting and Carrying difficulty Squats difficulty Running Assessment Unable OP Gait Assessment Gait Gait Assistance Required: Independent Distance (Feet) 150 Able to Maintain Weight Bearing Status Yes During Gait Assistive Devices Assistive Device None Orthotic/Prosthetic Devices or Brace: Yes Gait Deviations General Gait Pattern Lateral Trunk Lean Factors Limiting Gait Function Factors Limiting Gait Function Decreased Strength,Poor Balance PT-OP-H Neuro Start: 02/14/19 17:38 Freq: Status: Active Protocol: Document 02/15/19 17:35 EA (Rec: 02/16/19 07:52 EA [id number]) Sensation Evaluation Gross Sensation Gross Sensation Left LE Impaired,Right LE Impaired Sensation Description Numbness,Pins & [place],Pain, Phantom Pain Dermatome Impairments L3,L4,L5,S1 PT-OP-J Posture/Palpation/Skin Start: 02/14/19 17:38 Freq: Status: Active Protocol: Document 02/15/19 17:35 EA (Rec: 02/16/19 07:52 EA [id number]) Posture Evaluation Position Standing Evaluation View post/ant Comments Posture Comments Fair general posture. No signs of right knee recurvatum. Palpation Assessment Location One Palpation Location left toes. Palpation Findings Tenderness Skin Assessment Other Assessments Skin Assessment Comments No open skin condition or signs or edema on both feet. Slight discoloration that resembels to diabetc foot is noted to left foot, however easy blanching is evident with tests. PT-OP-K Range of Motion Start: 02/14/19 17:38 Freq: Status: Active Protocol: Document 02/15/19 17:35 EA (Rec: 02/16/19 07:52 EA [id number]) Knee Goniometric Range of Motion Knee ROM Limitations Comments WFL on both knees Ankle and Foot Goniometric Range of Motion Ankle and Foot Left Active Ankle/Foot ROM WFL Yes PT-OP-M Strength Start: 02/14/19 17:38 Freq: Status: Active Protocol: Document 02/15/19 17:35 EA (Rec: 02/16/19 07:52 EA [id number]) Hip Strength Hip Manual Muscle Testing Left Reason Not Measured WFL Right Flexion (L2) 4- Good- Abduction 4- Good- Adduction 4- Good- External Rotation 4- Good- Internal Rotation 4- Good- Knee Strength Knee Manual Muscle Testing Right Reason Not Measured WFL Left Reason Not Measured WFL Ankle/Foot Strength Ankle and Foot Manual Muscle Testing Left Dorsiflexion (L4) 4 Good Plantarflexion (S1) 4 Good Inversion 4 Good Eversion (S1) 4 Good Toe Strength Toe Manual Muscle Testing Left Great Toe Flexion 4- Good- Extension 4- Good- PT-OP-Q Treatments Start: 02/14/19 17:38 Freq: Status: Active Protocol: Document 04/06/19 11:02 EA (Rec: 04/06/19 11:13 EA [id number]) Gym Equipment Sport Cord 1 Exercise Details fwd/bwd/swd Cord/Resistance blue Reps/Duration x 5 laps each Comments use red mat for floor surface Therapeutic Exercises Standing Exercises 5 Standing Exercise Name SLS Reps/Minutes x 10 reps each leg 3 Standing Exercise Name Foam Tandem NBOS/EO/EC/ arm challenge Reps/Minutes 4 mins Comments Trunk rot front and back w/ reaching 1 Standing Exercise Name Cone zig-zag backward stepping Reps/Minutes x 5 mins Therapeutic Activity Therapeutic Activity 1 Name Fall floor recovery Reps/Minutes 4 mins Comments requires Min assist when patient is in lunge position and with rail support to pull his body up. Neuro Re-Education Treatment Balance Activities 5 Details side steps, fwd/bwd Surface firm Equipment basketball Reps/Duration 4 mins Comments ball bounce pass while in motion 4 Details BWD/SWD stepping Surface Wide foam matress Reps/Duration x 5 mins Comments CGA. Ball throws, balloon toss 2 Details Foam stagarred stance Reps/Duration 30 x 3 Comments reaching backward reaching: left and right alternate feet. CGA 1 Details Wobble board: tilt SWD/FWD Reps/Duration 5 mins Comments //bars PRN. CGA arm raises/trunk rotations PT-OP-T Assessment and Plan Start: 02/14/19 17:38 Freq: Status: Active Protocol: Document 04/06/19 11:02 EA (Rec: 04/06/19 11:13 EA [id number]) Physical Therapy Assessment Assessment Summary Assessment Patient perform fall recovery exercises very well; requires assist during getting up from lunge position. Dynamic stability shows great improvement as well. Patient requires SBA/CGA for safety in all balance exercises due to frequent dizziness. Physical Therapy Plan Next Visit Focus/Plan Next Note Type Treatment Note Next Visit Plan Cont dynamic stability in backward motion.
--- NOTE | 2019-04-21 11:48 | PT.OPDS ---
Current Diagnoses Polyneuropathy, unspecified (04/06/19) Other abnormalities of gait and mobility (04/06/19) Visit Care Team Role Provider Type Reji Jurado MD Attending Provider Non-Staff Primary Care Provider Specialty: Medical Address: [address], [place], [address] Email: Visit Number Visit Number 11 Discharge Summary PT-OP-B Current Condition Start: 02/14/19 17:38 Freq: Status: Active Protocol: Document 02/15/19 17:35 EA (Rec: 02/16/19 07:52 EA [id number]) Current Condition History of Current Condition Onset Date 02/11/2019 Current Complaints Gait difficulty and left leg neuropathic pain History of Current Condition 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 Had formal PT after amputation and was able to walk with no AD on level surface; states discharge to PT last 2017 due to abnormal vitals and currently stable after medication adjustments. He reports that has been bothered with his balance and pain to leg foot right after having a BF and decreased once in supine position. He denies low back pain or radiating pain from buttok to posterior thigh. He mentioned that his balance is off with stairs and uneven surface without the use of AD. Prior Treatments and Tests Formal PT in 2016/2017 after R BKA. Future Testing and Treatments Planned None identified. Treatment Goals Patient/Caregiver Goals 1. I would like to turn and walk backward without losing my balance 2. I would like to decreased my left toe throbbing pain Prior Functional Status Baseline Function- ADL's Independent Baseline Function- Mobility Independent Baseline Function- Gait Indep with no limitation prior to 2016 BKA Baseline Function- Work/School Retired Baseline Function- Recreation/Hobbies Active lifetsyle with ability to walk more than 5 mile /week and regular resistance training prior to 2017 BKA Current Functional Impairments (Reported) Functional Limitations- ADL's Indep in all except driving and long distance ambulation. Functional Limitations- Mobility/Gait Able to ambulate with no AD on level surface less than a mile. Difficulty with > a mile amb and uneven surface without AD. Difficulty with back santa stepping Functional Limitations- Work/School Retired Functional Limitations- Recreation/ Unable to perform 2017 hobbies Hobbies : long distance walks, regular fitness exercises Personal Factors Other Personal Factors That May Effect Pacemakes, Ocassional Therapy/Recovery dizziness, CHF PT-OP-C Subjective Start: 02/14/19 17:38 Freq: Status: Active Protocol: Document 04/06/19 11:02 EA (Rec: 04/06/19 11:13 EA [id number]) OP-PT Subjective Patient Comments Patient Comments My regular PT is helping me a lot. Patient Reported Progress Improving PT-OP-D Balance Start: 02/14/19 17:38 Freq: Status: Active Protocol: Document 02/16/19 07:16 EA (Rec: 02/16/19 07:52 EA [id number]) OP-PT Balance Assessment Sitting Balance Static Sitting Balance Ability Normal Dynamic Sitting Balance Ability Normal Standing Balance Static Standing Balance Ability Good Dynamic Standing Balance Ability Fair Balance Tests Functional Reach Functional Reach Test 8 Functional Reach Impairment Rating 20 to <40% Impaired (Score 7-8 ) Single Limb Standing Single Limb- Right unable Single Limb- Left Less than 3seconds Tandem Tandem Standing < 5 seconds with Mccann Balance Assessment Evaluation Sitting to Standing Ability Independent w/Hands Unsupported Stance Safely- 2 minutes Standing to Sitting Ability Safely, Minimal Hand Use Transfer Ability Safely, Hand Use Unsupported Stance- Eyes Closed Safely, 10 seconds Unsupported Stance- Eyes Open Independent, 1 minute Reaching Forward Standing Safely, 5 inches Pick- Up Object From Floor Independent/Safe Look Behind Shoulder - Standing Shifts Weight Unilateral Turning 360 Degrees Turns , < 4 secs Unsupported Stance, Alternating Feet on (I)- 8 Steps in > 20 secs Stair Unsupported Tandem Stance Small Step- 30 seconds Unilateral Leg Stance Lifts Leg/Holds > 3 secs Total Score Mccann Total Score (out of 56 points) 42 Mccann Impairment Rating 20 to 39% Impaired (Score 34- 44) Tinetti Balance Assessment Sitting Balance Sitting Balance Steady, safe Arising from Chair Ability to Arise Able, w/o using arms Attempts to Arise Arises on 1st attempt Standing Balance Immediate Standing Balance Steady w/o support Standing Balance Steady, wide stance Nudged Response Steady Standing with Eyes Closed Steady Turning Step Pattern Turning 360 Degrees Continuous steps Stability Turning 360 Degrees Steady Sitting Down Sitting Down Uses arms or unsteady Gait and Step Initiation of Gait No hesitancy Right Foot Step Length Does pass stance foot Right Foot Step Height Completely clears floor Left Foot Step Length Does pass stance foot Left Foot Step Height Completely clears floor Step Description Step Symmetry Step length not equal Gait Description Path Description Straight Trunk Description No sway but posturing Walking Stance Heels apart Scoring and Interpretation Tinetti Composite Score (points) 22 Tinetti Impairment Rating from Composite 20 to <40% Impaired (Score 17- Score 22) Casillas Fall Scale Copyright Permission PT-OP-E Functional Tests Start: 02/14/19 17:38 Freq: Status: Active Protocol: Document 02/15/19 17:35 EA (Rec: 02/16/19 07:52 EA [id number]) Functional Tests Timed Up and Go (TUG) Score 12 TUG Impairment Rating 20 to <40% Impaired (Score 12- 13) PT-OP-F Manual Assessment Start: 02/14/19 17:38 Freq: Status: Active Protocol: Document 02/15/19 17:35 EA (Rec: 02/16/19 07:52 EA [id number]) Manual Assessments Soft Tissue Assessment Soft Tissue Mobility Assessment left 2nd toe extnsor contracture, rest of the toes are flexed tight. Joint Mobility Assessment Joint Mobility Assessment Hypo mobility to left IP/PIP toe joints. PT-OP-G Mobility & Gait Start: 02/14/19 17:38 Freq: Status: Active Protocol: Document 02/15/19 17:35 EA (Rec: 02/16/19 07:52 EA [id number]) OP Mobility Evaluation Bed Mobility Rolling indep Supine to and from Sit indep Transfers Sit to Stand indep Bed to Chair Transfers indep Car Transfers indep Floor Transfers Unable Functional Movements Lifting and Carrying difficulty Squats difficulty Running Assessment Unable OP Gait Assessment Gait Gait Assistance Required: Independent Distance (Feet) 150 Able to Maintain Weight Bearing Status Yes During Gait Assistive Devices Assistive Device None Orthotic/Prosthetic Devices or Brace: Yes Gait Deviations General Gait Pattern Lateral Trunk Lean Factors Limiting Gait Function Factors Limiting Gait Function Decreased Strength,Poor Balance PT-OP-H Neuro Start: 02/14/19 17:38 Freq: Status: Active Protocol: Document 02/15/19 17:35 EA (Rec: 02/16/19 07:52 EA [id number]) Sensation Evaluation Gross Sensation Gross Sensation Left LE Impaired,Right LE Impaired Sensation Description Numbness,Pins & [place],Pain, Phantom Pain Dermatome Impairments L3,L4,L5,S1 PT-OP-J Posture/Palpation/Skin Start: 02/14/19 17:38 Freq: Status: Active Protocol: Document 02/15/19 17:35 EA (Rec: 02/16/19 07:52 EA [id number]) Posture Evaluation Position Standing Evaluation View post/ant Comments Posture Comments Fair general posture. No signs of right knee recurvatum. Palpation Assessment Location One Palpation Location left toes. Palpation Findings Tenderness Skin Assessment Other Assessments Skin Assessment Comments No open skin condition or signs or edema on both feet. Slight discoloration that resembels to diabetc foot is noted to left foot, however easy blanching is evident with tests. PT-OP-K Range of Motion Start: 02/14/19 17:38 Freq: Status: Active Protocol: Document 02/15/19 17:35 EA (Rec: 02/16/19 07:52 EA [id number]) Knee Goniometric Range of Motion Knee ROM Limitations Comments WFL on both knees Ankle and Foot Goniometric Range of Motion Ankle and Foot Left Active Ankle/Foot ROM WFL Yes PT-OP-M Strength Start: 02/14/19 17:38 Freq: Status: Active Protocol: Document 02/15/19 17:35 EA (Rec: 02/16/19 07:52 EA [id number]) Hip Strength Hip Manual Muscle Testing Left Reason Not Measured WFL Right Flexion (L2) 4- Good- Abduction 4- Good- Adduction 4- Good- External Rotation 4- Good- Internal Rotation 4- Good- Knee Strength Knee Manual Muscle Testing Right Reason Not Measured WFL Left Reason Not Measured WFL Ankle/Foot Strength Ankle and Foot Manual Muscle Testing Left Dorsiflexion (L4) 4 Good Plantarflexion (S1) 4 Good Inversion 4 Good Eversion (S1) 4 Good Toe Strength Toe Manual Muscle Testing Left Great Toe Flexion 4- Good- Extension 4- Good- PT-OP-T Assessment and Plan Start: 02/14/19 17:38 Freq: Status: Active Protocol: Document 04/21/19 11:46 IJS (Rec: 04/21/19 11:48 IJS [id number]) Physical Therapy Assessment Progress Towards Goals Progress Comments Patient was last seen 04-06-19 and was instructed to work on his home exercise program for 6 weeks. If therapy is still needed after that he was instructed to get a new referral from his MD to continue. Physical Therapy Plan Discharge Physical Therapy Discharge Reasons No Longer Attending PT Discharge Comments Patient was seen for 11 visits .
== END 2019-04-21 16:56 ==
LOC: PHYS 09:45
PROVIDERS: PCP Internal Medicine; Visit Provider Internal Medicine
DX: R26.89 Other abnormalities of gait and mobility (principal); G62.9 Polyneuropathy, unspecified
CPT/HCPCS: 97110; 97112; 97140; 97163; 97535